=== PATIENT | female | born 1965 | race African-American/Black ===

== ENCOUNTER 2017-05-30 15:00 | Inpatient (IN) | payer OTHER ==
[2017-05-30 16:52] VITALS: BMI 21.9
--- NOTE | 2017-05-30 17:41 | HP ---
CIWA Score - CIWA Score Nausea/Vomitin-Mild Nausea/No Vomiting Muscle Tremors: 4-Moderate,w/Arms Extend Anxiety: 4-Mod. Anxious/Guarded Agitation: 4-Moderately Restless Paroxysmal Sweats: 1-Minimal Palms Moist Orientation: 1-Uncertain about Date Tacttile Disturbances: 0-None Auditory Disturbances: 0-None Visual Disturbances: 0-None Headache: 1-Very Mild CIWA-Ar Total Score: 16 Admission ROS S - HPI Chief Complaint: WITHDRAWAL SX Allergies/Adverse Reactions: Allergies Allergy/AdvReac Type Severity Reaction Status Date / Time diphenhydramine HCl Allergy Swelling Verified 05/30/17 17:08 [From Benadryl] peanut Allergy Swelling Verified 05/30/17 18:09 peanuts Allergy Swelling Uncoded 05/30/17 17:08 Exam Limitations: No Limitations - Ebola screening Have you traveled outside of the country in the last 21 days: No Have you had contact with anyone from an Ebola affected area: No Have you been sick,other than usual withdrawal symptoms: No Do you have a fever: No - Review of Systems Constitutional: Loss of Appetite, Changes in sleep, Unintentional Wgt. Loss, Unexplained wgt Loss EENT: reports: Dental Problems (MISSING TEETH UPPER AND LOWER) Respiratory: reports: SOB with Exertion Cardiac: reports: No Symptoms Reported GI: reports: Nausea, Poor Appetite, Poor Fluid Intake, Abdominal cramping : reports: No Symptoms Reported Musculoskeletal: reports: Back Pain, Joint Pain, Muscle Pain (LEFT FOOT LEFT LEG ), Neck Pain Integumentary: reports: No Symptoms Reported Neuro: reports: Tremors Endocrine: reports: Increased Urine Hematology: reports: No Symptoms Reported Psychiatric: reports: Judgement Intact, Anxious, Depressed Other Systems: Reviewed and Negative Patient History - Patient Medical History Hx Anemia: No Hx Asthma: Yes Hx Chronic Obstructive Pulmonary Disease (COPD): No Hx Cancer: No Hx Cardiac Disorders: No Hx Congestive Heart Failure: No Hx Hypertension: Yes Hx Hypercholesterolemia: Yes Hx Pacemaker: No Hx Seizures: Yes (UNKNOWN) Hx Dementia: No Hx Diabetes: Yes Hx Gastrointestinal Disorders: No Hx Liver Disease: Yes Hx Genitourinary Disorders: No Hx Sexually Transmitted Disorders: No Hx Renal Disease (ESRD): No Hx Thyroid Disease: No Hx Human Immunodeficiency Virus (HIV): Yes (dx'ed 1997) Hx Hepatitis C: No Hx Depression: Yes Hx Suicide Attempt: Yes (46 YEARS OLD CUT ARMS) Hx Bipolar Disorder: No Hx Schizophrenia: Yes (PARONID) - Patient Surgical History Past Surgical History: No Hx Neurologic Surgery: No Hx Cataract Extraction: No Hx Cardiac Surgery: No Hx Lung Surgery: No Hx Breast Surgery: No Hx Breast Biopsy: No Hx Abdominal Surgery: No Hx Appendectomy: No Hx Cholecystectomy: No Hx Genitourinary Surgery: No Hx Section: No Hx Orthopedic Surgery: No Hx Hysterectomy: No - PPD History Previous Implant?: Yes Documented Results: Negative w/proof Implanted On Prior [facility] Admission?: Yes Date: 10/01/14 Results: 0MM PPD to be Administered?: Yes - Reproductive History Patient is a Female of Child Bearing Age (11 -55 yrs old): Yes Last Menstrual Period: 09/27/16 Patient : No - Smoking Cessation Smoking history: Current every day smoker Have you smoked in the past 12 months: Yes Aproximately how many cigarettes per day: 20 Cigars Per Day: 0 Hx Chewing Tobacco Use: No Initiated information on smoking cessation: Yes 'Breaking Loose' booklet given: 05/30/17 - Substance & Tx. History Hx Alcohol Use: Yes Hx Substance Use: Yes Substance Use Type: Alcohol, Cocaine Hx Substance Use Treatment: Yes (2014) - Substances Abused Crack Route: Smoking Frequency: Daily Amount used: $100 Age of first use: 19 Date of Last Use: 05/29/17 ETOH Route: Oral Frequency: Daily Amount used: 1 PINT VODKA + 24OZX6 Age of first use: 19 Date of Last Use: 05/30/17 Family Disease History - Family Disease History Family Disease History: Diabetes: Sister (hiv - ), Heart Disease: Mother (htn - ), Other: Father (/HIV), Mother, Brother (NO CONTACT), Sister Admission Physical Exam B[facility] - Vital Signs Vital Signs: Vital Signs - 24 hr 05/30/17 16:49 Temperature 98.4 F Pulse Rate 92 H Respiratory 18 Rate Blood Pressure 130/101 - Physical General Appearance: Yes: Appropriately Dressed, Mild Distress, Thin, Tremorous, Irritable, Sweating, Anxious HEENTM: Yes: Hearing grossly Normal, Normal ENT Inspection, Normocephalic, Normal Voice Respiratory: Yes: Chest Non-Tender, No Respiratory Distress, No Accessory Muscle Use, Wheezing, Inspiration Neck: Yes: Supple, Trachea in good position Breast: Yes: Breasts Symetrical Cardiology: Yes: Regular Rhythm, S1, S2, Tachycardia Abdominal: Yes: Normal Bowel Sounds, Non Tender, Soft Genitourinary: Yes: Within Normal Limits Back: Yes: Normal Inspection Musculoskeletal: Yes: full range of Motion, Gait Steady, Back pain, Muscle Pain Extremities: Yes: Normal Inspection, Normal Range of Motion, Non-Tender, Tremors Neurological: Yes: Alert, Motor Strength 5/5, Normal Response, Depressed Affect Integumentary: Yes: Warm Lymphatic: Yes: Within Normal Limits - Diagnostic (1) Alcohol dependence with uncomplicated withdrawal Current Visit: Yes Status: Acute (2) Cocaine dependence, uncomplicated Current Visit: Yes Status: Chronic (3) Weight loss Current Visit: Yes Status: Acute (4) Bipolar II disorder Current Visit: Yes Status: Suspected (5) Blind left eye Current Visit: Yes Status: Suspected Comment: CVA 04/2017 (6) Asthma Current Visit: Yes Status: Chronic Qualifiers: Asthma severity: mild Asthma persistence: persistent Asthma complication type: with status asthmaticus Qualified Code(s): J45.32 - Mild persistent asthma with status asthmaticus (7) Hyperlipidemia Current Visit: Yes Status: Chronic Qualifiers: Hyperlipidemia type: pure hypercholesterolemia Qualified Code(s): E78.00 - Pure hypercholesterolemia, unspecified; E78.0 - Pure hypercholesterolemia (8) HIV (human immunodeficiency virus infection) Current Visit: Yes Status: Chronic Comment: NOT ON ANY MEDICATION FOR "MONTHS" (9) HTN (hypertension) Current Visit: Yes Status: Chronic Qualifiers: Hypertension type: essential hypertension Qualified Code(s): I10 - Essential (primary) hypertension (10) Nicotine dependence Current Visit: Yes Status: Acute Qualifiers: Nicotine product type: cigarettes Substance use status: in withdrawal Qualified Code(s): F17.213 - Nicotine dependence, cigarettes, with withdrawal (11) Seizure disorder Current Visit: Yes Status: Chronic Comment: no complaint with medication use SINCE 2000 Cleared for Admission S - Detox or Rehab [facility] Level of Care: Medically Managed Detox Regimen/Protocol: Librium [facility] Breath Alcohol Content Breath Alcohol Content: 0 Urine Pregancy Test - Result Urine Test Results: Negative- NO Line Present Urine Drug Screen - Results Drug Screen Negative: No Urine Drug Screen Results: GOLDIE-Cocaine
[2017-05-30] MEDS ORDERED: LOPERAMIDE HCL 2 MG CAPSULE PO PRN (18:02)
[2017-05-30] MEDS ORDERED: guaiFENesin/D-METHORPHAN HB 10 ML UNIT-DOSE CUPS PO PRN (18:02)
[2017-05-30] MEDS ORDERED: P-EPHED 60MG/TRIPROLIDI 2.5MG TABLET PO PRN (18:02)
[2017-05-30] MEDS ORDERED: chlordiazePOXIDE HCL 25 MG CAPSULE PO PRN (18:02)
[2017-05-30] MEDS ORDERED: MAGNESIUM CITRATE 300 ML BOTTLE PO PRN (18:02)
[2017-05-30] MEDS ORDERED: IBUPROFEN 400 MG TABLET (FP) PO PRN (18:02)
[2017-05-30] MEDS ORDERED: MENTHOL/PHENOL 1 EACH UD MM PRN (18:02)
[2017-05-30] MEDS ORDERED: NICOTINE POLACRILEX 4 MG GUM BC PRN (18:02)
[2017-05-30] MEDS ORDERED: MAG HYDROX/AL HYDROX/SIMETH 30 ML UNIT-DOSE CUP PO PRN (18:02)
[2017-05-30] MEDS ORDERED: MAGNESIUM HYDROX 2400MG/30ML ORAL SUSPENSION 30 ML CUP PO PRN (18:02)
[2017-05-30] MEDS ORDERED: ALBUTEROL SO4 18 GM HFA INHALER IH PRN (18:05)
[2017-05-30] MEDS ORDERED: NICOTINE 21 MG/24 HOURS TOPICAL PATCH TD PRN (18:45)
[2017-05-30] MEDS: ACETAMINOPHEN 325 MG TABLET (FP) PO PRN (20:43)
--- NOTE | 2017-05-30 21:46 | PN ---
[facility] Progress Note Note: tempt 100.1 tylenal 650 mg x 1 increase oral fluid continue monitor
[2017-05-30] MEDS: PHENYTOIN NA EXTENDED 100 MG CAPSULE (FP) PO SCH (22:40)
[2017-05-30] MEDS: chlordiazePOXIDE HCL 25 MG CAPSULE PO SCH (22:41)
[2017-05-30] MEDS: ATORVASTATIN CA 10 MG TABLET (FP) PO SCH (22:41)
[2017-05-30] MEDS: THIAMINE HCL 100 MG TABLET (FP) PO SCH (22:41)
[2017-05-30] MEDS: INSULIN SLIDING SCALE (NOVOLOG) 1 VIAL SQ SCH (22:45)
[2017-05-31 00:17] LABS: URINE APPEARANCE CLEAR; URINE BILIRUBIN NEGATIVE (NEGATIVE); URINE BLOOD 1+ (NEGATIVE); URINE COLOR STRAW; URINE GLUCOSE (UA) 1+ (NEGATIVE); URINE KETONE NEGATIVE (NEGATIVE); URINE NITRITE NEGATIVE (NEGATIVE); URINE UROBILINOGEN NEGATIVE mg/dL (0.2-1.0)
[2017-05-31 00:30] LABS: URINE LEUK ESTERASE 1+ (NEGATIVE); URINE PROTEIN 2+ (NEGATIVE)
[2017-05-31 01:06] LABS: EPI CELLS RARE /HPF (FEW); URINE MUCUS RARE
[2017-05-31] MEDS: chlordiazePOXIDE HCL 25 MG CAPSULE PO SCH ×4 (06:11→22:30)
[2017-05-31] MEDS ORDERED: metFORMIN HCL 500 MG TABLET (FP) PO SCH (07:00)
[2017-05-31] MEDS: INSULIN SLIDING SCALE (NOVOLOG) 1 VIAL SQ SCH ×4 (07:22→22:29)
--- NOTE | 2017-05-31 09:04 | CONSULT ---
[facility] Psychiatric Consult - Data Date of interview: 05/31/17 Admission source: [facility] Identifying data: This is 52 years old female with multiple medical iossues, history of Bipolar disorder, intoxicated with: Crack, Nicotine, hisatory of Alcohol abuse as well Substance Abuse History: Smoking history: Current every day smoker. Have you smoked in the past 12 months: Yes. Aproximately how many cigarettes per day: 20. Cigars Per Day: 0. Hx Chewing Tobacco Use: No. Initiated information on smoking cessation: Yes. 'Breaking Loose' booklet given: 05/30/17. - Substance & Tx. History. Hx Alcohol Use: Yes. Hx Substance Use: Yes. Substance Use Type : Alcohol, Cocaine. Hx Substance Use Treatment: Yes (2014). - Substances Abused. Crack. Route: Smoking. Frequency: Daily. Amount used: $100. Age of first use: 19. Date of Last Use: 05/29/17. ETOH. Route: Oral. Frequency: Daily. Amount used: 1 PINT VODKA + 24OZX6. Age of first use: 19. Date of Last Use: 05/30/17 Medical History: Weight loss history, HIV, HTN, Asthma, Left eye blindness, Hypelipidemia, Seizure history Psychiatric History: Patient reports history of depression and anxiety, Bipolar -II disorder, reports taking prior to admission: no medicastions, denies history of psychiatric admissions. As per computer there is a history of Paranoid Schizophrenia Physical/Sexual Abuse/Trauma History: Denies Additional Comment: Observation. Detox Unit Care Protocol Mental Status Exam - Mental Status Exam Alert and Oriented to: Person Cognitive Function: Fair Patient Appearance: Unkempt Mood: Sad Affect: Flat Patient Behavior: Sedated Speech Pattern: Delayed Voice Loudness: Mildly Soft/Quiet Thought Process: Circumstantial Thought Disorder: Being Controlled Hallucinations: Denies Suicidal Ideation: Denies Homicidal Ideation: Denies Insight/Judgement: Fair Sleep: Difficulty falling asleep Appetite: Fair Muscle strength/Tone: Mild Hypotonicity Gait/Station: Shuffling Additional Comments: Observation. Detox Unit Care Protocol Psychiatric Findings - Problem List ([place] 1, 2,3) (1) Alcohol dependence with uncomplicated withdrawal Current Visit: Yes Status: Acute (2) Nicotine dependence Current Visit: Yes Status: Acute Qualifiers: Nicotine product type: cigarettes Substance use status: in withdrawal Qualified Code(s): F17.213 - Nicotine dependence, cigarettes, with withdrawal (3) Weight loss Current Visit: Yes Status: Acute (4) Cocaine dependence, uncomplicated Current Visit: Yes Status: Chronic (5) Seizure disorder Current Visit: Yes Status: Chronic Comment: no complaint with medication use SINCE 2000 (6) Bipolar II disorder Current Visit: Yes Status: Suspected (7) Cocaine dependence Current Visit: No Status: Acute (8) Opioid dependence Current Visit: No Status: Acute Qualifiers: Substance use status: in withdrawal Qualified Code(s): F11.23 - Opioid dependence with withdrawal (9) Opioid dependence with withdrawal Current Visit: No Status: Acute (10) Paranoid schizophrenia Current Visit: No Status: Suspected - Initial Treatment Plan Initial Treatment Plan: Observation. Detox Unit Care Protocol
--- NOTE | 2017-05-31 09:13 | EKG ---
Test Reason : Blood Pressure : / mmHG Vent. Rate : 080 BPM Atrial Rate : 080 BPM P-R Int : 154 ms QRS Dur : 090 ms QT Int : 360 ms P-R-T Axes : 082 051 049 degrees QTc Int : 415 ms NORMAL SINUS RHYTHM POSSIBLE LEFT ATRIAL ENLARGEMENT LEFT VENTRICULAR HYPERTROPHY WITH REPOLARIZATION ABNORMALITY ABNORMAL ECG NO PREVIOUS ECGS AVAILABLE Confirmed by ABIEL SHIELDS MD ([id number]) on 05/31/2017 9:13:04 AM Referred By: Confirmed By:ABIEL SHIELDS MD
[2017-05-31 09:53] LABS: HEMATOCRIT 33.2 % (32.4-45.2); HEMOGLOBIN 10.5 GM/dL (10.7-15.3); MCH 26.6 pg (25.7-33.7); MCHC 31.7 g/dl (32.0-36.0); MEAN CELL VOLUME 83.8 fl (80-96); MEAN PLT VOLUME 9.6 fl (7.5-11.1); PLATELET COUNT 295 K/MM3 (134-434); RBC 3.96 M/mm3 (3.60-5.2); RDW 15.2 % (11.6-15.6); WHITE BLOOD COUNT 4.3 K/mm3 (4.0-10.0)
[2017-05-31] MEDS ORDERED: ERGOCALCIFEROL (VITAMIN D2) 50,000 UNIT CAPSULE (FP) PO SCH (10:00)
[2017-05-31 10:14] LABS: CHLORIDE 117 mmol/L (98-107); POTASSIUM 4.3 mmol/L (3.5-5.1); SODIUM 145 mmol/L (136-145)
--- NOTE | 2017-05-31 10:21 | PN ---
S CIWA - CIWA Score Nausea/Vomitin Muscle Tremors: 3 Anxiety: 3 Agitation: 3 Paroxysmal Sweats: 1-Minimal Palms Moist Orientation: 0-Oriented Tacttile Disturbances: 1-Very Mild Itch/Numbness Auditory Disturbances: 1-Very Mild Visual Disturbances: 0-None Headache: 2-Mild CIWA-Ar Total Score: 17 BHS Progress Note (SOAP) Subjective: ALERT,IRRITABLE,ANXIOUS,INTERRUPTED SLEEP,TREMOR,IRRITABLE,PAIN IN THE BODY Objective: 05/31/17 10:18 Vital Signs Temperature 98 F 05/31/17 10:00 Pulse Rate 92 H 05/31/17 10:00 Respiratory Rate 18 05/31/17 10:00 Blood Pressure 150/83 05/31/17 10:00 O2 Sat by Pulse Oximetry (%) EKG NSR,LVH NO CHEST PAIN,NO SOB,NO DIZZINESS Laboratory Last Values WBC 4.3 K/mm3 (4.0-10.0) 05/31/17 07:00 RBC 3.96 M/mm3 (3.60-5.2) 05/31/17 07:00 Hgb 10.5 GM/dL (10.7-15.3) L D 05/31/17 07:00 Hct 33.2 % (32.4-45.2) 05/31/17 07:00 MCV 83.8 fl (80-96) 05/31/17 07:00 MCH 26.6 pg (25.7-33.7) 05/31/17 07:00 MCHC 31.7 g/dl (32.0-36.0) L 05/31/17 07:00 RDW 15.2 % (11.6-15.6) 05/31/17 07:00 Plt Count 295 K/MM3 (134-434) D 05/31/17 07:00 MPV 9.6 fl (7.5-11.1) 05/31/17 07:00 Sodium 145 mmol/L (136-145) 05/31/17 07:00 Potassium 4.3 mmol/L (3.5-5.1) 05/31/17 07:00 Chloride 117 mmol/L (98-107) H 05/31/17 07:00 POC Glucometer 108 UNITS (80-120) 05/31/17 05:59 Urine Color Straw 05/30/17 20:42 Urine Appearance Clear 05/30/17 20:42 Urine pH 5.0 (5.0-8.0) D 05/30/17 20:42 Ur Specific [place] 1.009 (1.001-1.035) 05/30/17 20:42 Urine Protein 2+ (NEGATIVE) H 05/30/17 20:42 Urine Glucose (UA) 1+ (NEGATIVE) H 05/30/17 20:42 Urine Ketones Negative (NEGATIVE) 05/30/17 20:42 Urine Blood 1+ (NEGATIVE) H 05/30/17 20:42 Urine Nitrite Negative (NEGATIVE) 05/30/17 20:42 Urine Bilirubin Negative (NEGATIVE) 05/30/17 20:42 Urine Urobilinogen Negative mg/dL (0.2-1.0) 05/30/17 20:42 Ur Leukocyte Esterase 1+ (NEGATIVE) H 05/30/17 20:42 Urine WBC (Auto) 2 /hpf (3-5) 05/30/17 20:42 Urine RBC (Auto) 2 /hpf (0-3) 05/30/17 20:42 Ur Epithelial Cells Rare /HPF (FEW) 05/30/17 20:42 Urine Mucus Rare 05/30/17 20:42 05/31/17 10:19 LABS PENDING Assessment: 05/31/17 10:20 WITHDRAWAL SYMPTOM Plan: CONTINUE DETOX,BGM MONITORING
[2017-05-31] MEDS: amLODIPine BESYLATE 5 MG TABLET (FP) PO SCH (10:29)
[2017-05-31] MEDS: PRENATAL VITAMINS W/ FOLIC ACID TABLET (FP) PO SCH (10:29)
[2017-05-31] MEDS: PHENYTOIN NA EXTENDED 100 MG CAPSULE (FP) PO SCH ×2 (10:29→22:29)
[2017-05-31] MEDS: ASPIRIN 81 MG CHEWABLE TABLETS PO SCH (10:29)
[2017-05-31 10:58] LABS: ALBUMIN 2.1 g/dl (3.4-5.0); ALK PHOS 82 U/L (45-117); ANION GAP 9 (8-16); BILIRUBIN,TOTAL 0.3 mg/dL (0.2-1.0); BLOOD UREA NITROGEN 29 mg/dL (7-18); CALCIUM 8.3 mg/dL (8.5-10.1); CO2 19 mmol/L (21-32); CREATININE 2.1 mg/dL (0.55-1.02); GLUCOSE,RANDOM 104 mg/dL (74-106); SGOT/AST 21 U/L (15-37); SGPT/ALT 23 U/L (12-78); TOT PROT 5.9 g/dl (6.4-8.2)
[2017-05-31] MEDS ORDERED: INSULIN (NOVOLOG) ASPART 100 UNITS/ML 10ML VIAL ONE (11:48)
[2017-05-31] MEDS: THIAMINE HCL 100 MG TABLET (FP) PO SCH (22:30)
[2017-05-31] MEDS: ATORVASTATIN CA 10 MG TABLET (FP) PO SCH (22:30)
[2017-06-01] MEDS: INSULIN SLIDING SCALE (NOVOLOG) 1 VIAL SQ SCH ×4 (06:15→23:00)
[2017-06-01] MEDS: chlordiazePOXIDE HCL 25 MG CAPSULE PO SCH ×3 (06:15→17:46)
[2017-06-01] MEDS: ASPIRIN 81 MG CHEWABLE TABLETS PO SCH (10:43)
[2017-06-01] MEDS: PHENYTOIN NA EXTENDED 100 MG CAPSULE (FP) PO SCH ×2 (10:43→22:56)
[2017-06-01] MEDS: PRENATAL VITAMINS W/ FOLIC ACID TABLET (FP) PO SCH (10:43)
[2017-06-01] MEDS: amLODIPine BESYLATE 5 MG TABLET (FP) PO SCH (10:43)
[2017-06-01] MEDS ORDERED: PHENYTOIN NA EXTENDED 100 MG CAPSULE (FP) PO ONE (10:52)
--- NOTE | 2017-06-01 10:52 | PN ---
S CIWA - CIWA Score Nausea/Vomitin Muscle Tremors: 3 Anxiety: 2 Agitation: 2 Paroxysmal Sweats: 1-Minimal Palms Moist Orientation: 0-Oriented Tacttile Disturbances: 1-Very Mild Itch/Numbness Auditory Disturbances: 1-Very Mild Visual Disturbances: 0-None Headache: 2-Mild CIWA-Ar Total Score: 15 BHS Progress Note (SOAP) Subjective: ALERT,IRRITABLE,ANXIOUS,INTERRUPTED SLEEP,TREMOR HAD A FALL THIS MORNIG,NO INJURY NOTED,NO HEAD INJURY Objective: 06/01/17 10:49 Vital Signs Temperature 99.0 F 06/01/17 10:32 Pulse Rate 100 H 06/01/17 10:32 Respiratory Rate 18 06/01/17 10:32 Blood Pressure 144/75 06/01/17 10:32 O2 Sat by Pulse Oximetry (%) Laboratory Last Values WBC 4.3 K/mm3 (4.0-10.0) 05/31/17 07:00 RBC 3.96 M/mm3 (3.60-5.2) 05/31/17 07:00 Hgb 10.5 GM/dL (10.7-15.3) L D 05/31/17 07:00 Hct 33.2 % (32.4-45.2) 05/31/17 07:00 MCV 83.8 fl (80-96) 05/31/17 07:00 MCH 26.6 pg (25.7-33.7) 05/31/17 07:00 MCHC 31.7 g/dl (32.0-36.0) L 05/31/17 07:00 RDW 15.2 % (11.6-15.6) 05/31/17 07:00 Plt Count 295 K/MM3 (134-434) D 05/31/17 07:00 MPV 9.6 fl (7.5-11.1) 05/31/17 07:00 Sodium 145 mmol/L (136-145) 05/31/17 07:00 Potassium 4.3 mmol/L (3.5-5.1) 05/31/17 07:00 Chloride 117 mmol/L (98-107) H 05/31/17 07:00 Carbon Dioxide 19 mmol/L (21-32) L D 05/31/17 07:00 Anion Gap 9 (8-16) 05/31/17 07:00 BUN 29 mg/dL (7-18) H D 05/31/17 07:00 Creatinine 2.1 mg/dL (0.55-1.02) H 05/31/17 07:00 Creat Clearance w eGFR 24.93 (>60) 05/31/17 07:00 POC Glucometer 124 UNITS (80-120) 06/01/17 05:52 Random Glucose 104 mg/dL (74-106) 05/31/17 07:00 Calcium 8.3 mg/dL (8.5-10.1) L 05/31/17 07:00 Total Bilirubin 0.3 mg/dL (0.2-1.0) 05/31/17 07:00 AST 21 U/L (15-37) D 05/31/17 07:00 ALT 23 U/L (12-78) D 05/31/17 07:00 Alkaline Phosphatase 82 U/L (45-117) 05/31/17 07:00 Total Protein 5.9 g/dl (6.4-8.2) L 05/31/17 07:00 Albumin 2.1 g/dl (3.4-5.0) L 05/31/17 07:00 Urine Color Straw 05/30/17 20:42 Urine Appearance Clear 05/30/17 20:42 Urine pH 5.0 (5.0-8.0) D 05/30/17 20:42 Ur Specific [place] 1.009 (1.001-1.035) 05/30/17 20:42 Urine Protein 2+ (NEGATIVE) H 05/30/17 20:42 Urine Glucose (UA) 1+ (NEGATIVE) H 05/30/17 20:42 Urine Ketones Negative (NEGATIVE) 05/30/17 20:42 Urine Blood 1+ (NEGATIVE) H 05/30/17 20:42 Urine Nitrite Negative (NEGATIVE) 05/30/17 20:42 Urine Bilirubin Negative (NEGATIVE) 05/30/17 20:42 Urine Urobilinogen Negative mg/dL (0.2-1.0) 05/30/17 20:42 Ur Leukocyte Esterase 1+ (NEGATIVE) H 05/30/17 20:42 Urine WBC (Auto) 2 /hpf (3-5) 05/30/17 20:42 Urine RBC (Auto) 2 /hpf (0-3) 05/30/17 20:42 Ur Epithelial Cells Rare /HPF (FEW) 05/30/17 20:42 Urine Mucus Rare 05/30/17 20:42 Phenytoin 3.0 ug/ml (10.0-20.0) L D 05/31/17 07:00 RPR Titer Nonreactive (NONREACTIVE) 05/31/17 07:00 Hepatitis C Antibody 0.1 s/co ratio (0.0-0.9) 05/30/17 07:00 Assessment: 06/01/17 10:51 WITHDRAWAL SYMPTOM Plan: CONTINUE DETOX,DILANTIN LEVEL IS 3,WILL GIVE LOADING DOSE OF DILANTIN 300 MGS PO NOW THEN 200 MGS PO BID SEIZURE PRECAUTION,FALL PROTOCOL 2 INITIATED WITH FALL PRECAUTION
[2017-06-01] MEDS ORDERED: INSULIN (NOVOLOG) ASPART 100 UNITS/ML 10ML VIAL ONE (17:35)
--- NOTE | 2017-06-01 18:19 | PN ---
[facility] Progress Note Note: PT. ASSESSED IN HER ROOM. SHE FELL GETTING OUT OF BED AND LANDED ON L-SIDE. PT. HAS A HISTORY OF CVA; LEFT- SIDED HEMIPARESIS NOTED. SHE DENIED HITTING HER HEAD. SHE REPORTS PAIN TO THE LEFT SIDE OF HER BODY IS 8/10. NO BRUISES NOTED AND SKIN INTACT. FROM. PLAN: FALL PROTOCOL #2 ORDERED CANE FALL PRECAUTIONS IBU PRN FOR PAIN
[2017-06-01] MEDS: ATORVASTATIN CA 10 MG TABLET (FP) PO SCH (22:56)
[2017-06-01] MEDS: THIAMINE HCL 100 MG TABLET (FP) PO SCH (22:56)
[2017-06-01] MEDS: chlordiazePOXIDE 5 MG CAPSULE PO SCH (22:59)
[2017-06-01] MEDS: cloNIDine HCL 0.1 MG TABLET PO PRN (23:54)
[2017-06-01] MEDS: ACETAMINOPHEN 325 MG TABLET (FP) PO PRN (23:56)
[2017-06-02] MEDS: chlordiazePOXIDE 5 MG CAPSULE PO SCH ×3 (06:21→17:31)
[2017-06-02] MEDS: INSULIN SLIDING SCALE (NOVOLOG) 1 VIAL SQ SCH ×4 (06:22→23:37)
--- NOTE | 2017-06-02 07:25 | PN ---
S Progress Note Note: ASKED TO SEE PT FOR A REPORTED FALL. CLIENT REPORTS SHE LOST HER BALANCE WHILE TRYING TO GET OUT. SHE STATES SHE FELL ON HER LEFT SIDE. CLIENT IS BLIND IN THE LEFT SIDE. SHE REPORTS GETTING OUT OF BED ON THIS SIDE.DENIES HEAD TRAUMA BUT C/ O L SIDE SORENESS. A/O X 3 NAD OOB AMBULATING W/ CANE W/O DIFFICULTLY SKIN INTACT NO EVIDENCE OF PHYSICAL INJURY NOTED FROM X4 W/O LIMITATIONS. SOME WEAKNESS NOTED TO L SIDE DUE TO OLD CVA Last Vital Signs Temp Pulse Resp BP Pulse Ox 97.3 F L 77 18 121/78 06/02/17 05:25 06/02/17 05:25 06/02/17 05:25 06/02/17 05:25 S/P UNWITNESSED FALL P- FALL PROTOCOL #2 CANE FOR AMBULATION D/W CLIENT TO EXIT BED FROM RIGHT SIDE DUE TO VISUAL IMPAIRMENT BOTH BED RAILS ON LEFT SIDE OF BED TO REMAIN UP AT ALL TIME TO PROMOTE BOUNDARIES CLOSE MONITORING TYLENOL, MOTRIN FOR PAIN CLIENT REFUSING WHEELCHAIR
[2017-06-02] MEDS: PHENYTOIN NA EXTENDED 100 MG CAPSULE (FP) PO SCH ×2 (11:44→23:05)
[2017-06-02] MEDS: ASPIRIN 81 MG CHEWABLE TABLETS PO SCH (11:44)
[2017-06-02] MEDS: amLODIPine BESYLATE 5 MG TABLET (FP) PO SCH (11:44)
[2017-06-02] MEDS: PRENATAL VITAMINS W/ FOLIC ACID TABLET (FP) PO SCH (11:44)
--- NOTE | 2017-06-02 11:53 | PN ---
S Progress Note (SOAP) Subjective: ALERT,IRRITABLE,ANXIOUS,INTERRUPTED SLEEP,HISTORY OF FALL THIS MORNING 7.10 AM NO INJURY NOTED IRRITABLE Objective: 06/02/17 11:55 Vital Signs Temperature 98.4 F 06/02/17 10:26 Pulse Rate 88 06/02/17 10:26 Respiratory Rate 16 06/02/17 10:26 Blood Pressure 116/77 06/02/17 10:26 O2 Sat by Pulse Oximetry (%) Assessment: 06/02/17 11:55 WITHDRAWAL SYMPTOM Plan: CONTINUE DETOX
[2017-06-02] MEDS ORDERED: INSULIN (NOVOLOG) ASPART 100 UNITS/ML 10ML VIAL ONE ×2 (11:55→17:27)
[2017-06-02] MEDS: chlordiazePOXIDE HCL 10 MG CAPSULE PO SCH (23:05)
[2017-06-02] MEDS: cloNIDine HCL 0.1 MG TABLET PO PRN (23:05)
[2017-06-02] MEDS: THIAMINE HCL 100 MG TABLET (FP) PO SCH (23:05)
[2017-06-02] MEDS: ATORVASTATIN CA 10 MG TABLET (FP) PO SCH (23:05)
[2017-06-03 06:25] VITALS: BP 119/83; PULSE 89; TEMP 99
[2017-06-03] MEDS: chlordiazePOXIDE HCL 10 MG CAPSULE PO SCH (06:40)
[2017-06-03] MEDS: INSULIN SLIDING SCALE (NOVOLOG) 1 VIAL SQ SCH (06:40)
--- NOTE | 2017-06-03 09:49 | DS ---
[facility] Detox Discharge Summary Admission Date: 05/30/17 Discharge Date: 06/03/17 - History Present History: Alcohol Dependence - Physical Exam Results Vital Signs: Vital Signs Temperature 99.0 F 06/03/17 06:00 Pulse Rate 89 06/03/17 06:00 Respiratory Rate 18 06/03/17 06:00 Blood Pressure 119/83 06/03/17 06:00 O2 Sat by Pulse Oximetry (%) Pertinent Admission Physical Exam Findings: withdrawal sx Vital Signs Temperature 99.0 F 06/03/17 06:00 Pulse Rate 89 06/03/17 06:00 Respiratory Rate 18 06/03/17 06:00 Blood Pressure 119/83 06/03/17 06:00 O2 Sat by Pulse Oximetry (%) Laboratory Last Values WBC 4.3 K/mm3 (4.0-10.0) 05/31/17 07:00 RBC 3.96 M/mm3 (3.60-5.2) 05/31/17 07:00 Hgb 10.5 GM/dL (10.7-15.3) L D 05/31/17 07:00 Hct 33.2 % (32.4-45.2) 05/31/17 07:00 MCV 83.8 fl (80-96) 05/31/17 07:00 MCH 26.6 pg (25.7-33.7) 05/31/17 07:00 MCHC 31.7 g/dl (32.0-36.0) L 05/31/17 07:00 RDW 15.2 % (11.6-15.6) 05/31/17 07:00 Plt Count 295 K/MM3 (134-434) D 05/31/17 07:00 MPV 9.6 fl (7.5-11.1) 05/31/17 07:00 Sodium 145 mmol/L (136-145) 05/31/17 07:00 Potassium 4.3 mmol/L (3.5-5.1) 05/31/17 07:00 Chloride 117 mmol/L (98-107) H 05/31/17 07:00 Carbon Dioxide 19 mmol/L (21-32) L D 05/31/17 07:00 Anion Gap 9 (8-16) 05/31/17 07:00 BUN 29 mg/dL (7-18) H D 05/31/17 07:00 Creatinine 2.1 mg/dL (0.55-1.02) H 05/31/17 07:00 Creat Clearance w eGFR 24.93 (>60) 05/31/17 07:00 POC Glucometer 119 UNITS (80-120) 06/03/17 06:36 Random Glucose 104 mg/dL (74-106) 05/31/17 07:00 Calcium 8.3 mg/dL (8.5-10.1) L 05/31/17 07:00 Total Bilirubin 0.3 mg/dL (0.2-1.0) 05/31/17 07:00 AST 21 U/L (15-37) D 05/31/17 07:00 ALT 23 U/L (12-78) D 05/31/17 07:00 Alkaline Phosphatase 82 U/L (45-117) 05/31/17 07:00 Total Protein 5.9 g/dl (6.4-8.2) L 05/31/17 07:00 Albumin 2.1 g/dl (3.4-5.0) L 05/31/17 07:00 Urine Color Straw 05/30/17 20:42 Urine Appearance Clear 05/30/17 20:42 Urine pH 5.0 (5.0-8.0) D 05/30/17 20:42 Ur Specific [place] 1.009 (1.001-1.035) 05/30/17 20:42 Urine Protein 2+ (NEGATIVE) H 05/30/17 20:42 Urine Glucose (UA) 1+ (NEGATIVE) H 05/30/17 20:42 Urine Ketones Negative (NEGATIVE) 05/30/17 20:42 Urine Blood 1+ (NEGATIVE) H 05/30/17 20:42 Urine Nitrite Negative (NEGATIVE) 05/30/17 20:42 Urine Bilirubin Negative (NEGATIVE) 05/30/17 20:42 Urine Urobilinogen Negative mg/dL (0.2-1.0) 05/30/17 20:42 Ur Leukocyte Esterase 1+ (NEGATIVE) H 05/30/17 20:42 Urine WBC (Auto) 2 /hpf (3-5) 05/30/17 20:42 Urine RBC (Auto) 2 /hpf (0-3) 05/30/17 20:42 Ur Epithelial Cells Rare /HPF (FEW) 05/30/17 20:42 Urine Mucus Rare 05/30/17 20:42 Phenytoin 3.0 ug/ml (10.0-20.0) L D 05/31/17 07:00 RPR Titer Nonreactive (NONREACTIVE) 05/31/17 07:00 Hepatitis C Antibody 0.1 s/co ratio (0.0-0.9) 05/30/17 07:00 lab noted - Treatment Hospital Course: Detox Protocol Followed, Detoxed Safely, Responded well, Discharged Condition Good, Rehab Referral Accepted - Medication Discharge Medications: Ambulatory Orders Albuterol Sulfate Inhaler - [Ventolin HFA Inhaler -] 2 inh PO Q4H 09/29/14 Amlodipine Besylate [Norvasc -] 2.5 mg PO DAILY 09/29/14 Atazanavir [Reyataz -] 300 mg PO DAILY 09/29/14 Atorvastatin Ca [Lipitor] 10 mg PO HS 09/29/14 Emtricitabine/Tenofovir [Truvada -] 1 tab PO DAILY 09/29/14 Metformin HCl [Glucophage -] 500 mg PO BID 09/29/14 Phenytoin Na Extended [Dilantin -] 200 mg PO BID 09/29/14 Ritonavir [Norvir] 100 mg PO DAILY 09/29/14 Citalopram Hydrobromide [Celexa -] 10 mg PO DAILY #30 tablet 05/10/15 Olanzapine [Zyprexa] 20 mg PO HS #30 tablet 05/10/15 - Diagnosis (1) Alcohol dependence with uncomplicated withdrawal Current Visit: Yes Status: Acute (2) Cocaine dependence, uncomplicated Current Visit: Yes Status: Chronic (3) Weight loss Current Visit: Yes Status: Acute (4) Bipolar II disorder Current Visit: Yes Status: Suspected (5) Blind left eye Current Visit: Yes Status: Suspected (6) Asthma Current Visit: Yes Status: Chronic Qualifiers: Asthma severity: mild Asthma persistence: persistent Asthma complication type: with status asthmaticus Qualified Code(s): J45.32 - Mild persistent asthma with status asthmaticus (7) Hyperlipidemia Current Visit: Yes Status: Chronic Qualifiers: Hyperlipidemia type: pure hypercholesterolemia Qualified Code(s): E78.00 - Pure hypercholesterolemia, unspecified; E78.0 - Pure hypercholesterolemia (8) HIV (human immunodeficiency virus infection) Current Visit: Yes Status: Chronic (9) HTN (hypertension) Current Visit: Yes Status: Chronic Qualifiers: Hypertension type: essential hypertension Qualified Code(s): I10 - Essential (primary) hypertension (10) Nicotine dependence Current Visit: Yes Status: Acute Qualifiers: Nicotine product type: cigarettes Substance use status: in withdrawal Qualified Code(s): F17.213 - Nicotine dependence, cigarettes, with withdrawal (11) Seizure disorder Current Visit: Yes Status: Chronic - AMA Did Patient Leave Against Medical Advice: No
[2017-06-03] MEDS: amLODIPine BESYLATE 5 MG TABLET (FP) PO SCH (09:59)
[2017-06-03] MEDS: ASPIRIN 81 MG CHEWABLE TABLETS PO SCH (09:59)
[2017-06-03] MEDS: PRENATAL VITAMINS W/ FOLIC ACID TABLET (FP) PO SCH (09:59)
[2017-06-03] MEDS: PHENYTOIN NA EXTENDED 100 MG CAPSULE (FP) PO SCH (09:59)
== END 2017-06-03 10:00 | disposition home or self-care (01) | DRG 774 ==
LOC: YASAS 15:00 → Y6N 17:21
PROVIDERS: ADMIT Internal Medicine; ATTEND Internal Medicine
PROC: HZ2ZZZZ Detoxification Services for Substance Abuse Treatment (ICD-10-PCS; principal; 2017-05-30)
DX: F10.230 Alcohol dependence with withdrawal, uncomplicated (principal); F14.20 Cocaine dependence, uncomplicated; F17.213 Nicotine dependence, cigarettes, with withdrawal; F31.81 Bipolar II disorder; F20.0 Paranoid schizophrenia; I10 Essential (primary) hypertension; E78.00 Pure hypercholesterolemia, unspecified; J45.32 Mild persistent asthma with status asthmaticus; G40.909 Epilepsy, unspecified, not intractable, without status epilepticus; H54.40 Blindness, one eye, unspecified eye; R63.4 Abnormal weight loss; Z68.21 Body mass index [BMI] 21.0-21.9, adult; Z91.5 Personal history of self-harm
CPT/HCPCS: 36415; 80053; 80185; 81003; 81015; 82962; 85027; 86593; 86803; 93005; 93010

== ENCOUNTER 2017-09-14 12:55 | Inpatient (IN) | payer OTHER ==
--- NOTE | 2017-09-14 13:35 | PDOC ---
History of Present Illness - General Stated Complaint: CHEST PAIN Time Seen by Provider: 09/14/17 13:01 History Source: Patient - History of Present Illness Initial Comments: 09/14/17 13:35 Patient is a 52 year old female with a PMH of HTN, HIV (last CD4 unknown, non- adherent > 1 year to multi drug regimen) presents to the ED c/o acute onset of chest pain. Patient states the pain is substernal, "gnawing and pounding" 10/10 , and positional (relieved by laying down). Patient states the pain continued throughout the morning and continued while she was at [facility] prompting staff to send her to our ED. Patient denies any previous h/o similar pain and notes the pain started after she ate a pastry and drank a glass of cold water. Endorses shortness of breath and intermittent palpitations denies any diaphoresis, nausea, lightheadedness. No recent travel, OCP use, immobilization. Of note, patient states she has been falling for the last 2 weeks and notes she most recently fell two days previous hitting the L side of her head. Uncertain LOC, cocaine use during time of fall. Notes dyspnea prior to falls but denies any chest pain, visual changes. Past History - Past Medical History Allergies/Adverse Reactions: Allergies Allergy/AdvReac Type Severity Reaction Status Date / Time diphenhydramine HCl Allergy Swelling Verified 09/14/17 14:01 [From Benadryl] peanut Allergy Swelling Verified 09/14/17 14:01 peanuts Allergy Swelling Uncoded 09/14/17 14:01 Home Medications: Ambulatory Orders Albuterol Sulfate Inhaler - [Ventolin HFA Inhaler -] 2 inh PO Q4H PRN #1 inhaler 09/06/17 Amlodipine Besylate [Norvasc -] 5 mg PO BID #60 tablet 09/06/17 Atorvastatin Ca [Lipitor] 10 mg PO HS tablet 09/06/17 Phenytoin Na Extended [Dilantin -] 200 mg PO BID #60 capsule 09/06/17 metFORMIN HCL [Glucophage -] 500 mg PO BID #60 tablet 09/06/17 Aspirin [ASA -] 81 mg PO DAILY #30 tab.chew 09/07/17 Anemia: No Asthma: Yes Cancer: No Cardiac Disorders: No CVA: Yes (left vision loss reports about 2-3 months ago ) COPD: No CHF: No Dementia: No Diabetes: Yes GI Disorders: No Disorders: No HTN: Yes Hypercholesterolemia: Yes Kidney Stones: No Liver Disease: Yes Seizures: Yes (2 yrs ago) Thyroid Disease: No - Surgical History Abdominal Surgery: No Appendectomy: No Cardiac Surgery: No Cholecystectomy: No Lung Surgery: No Neurologic Surgery: No Orthopedic Surgery: No - Reproductive History PID: No - Suicide/Smoking/Psychosocial Hx Smoking History: Current every day smoker Have you smoked in the past 12 months: Yes Number of Cigarettes Smoked Daily: 30 Cigars Per Day: 0 'Breaking Loose' booklet given: 09/03/17 Hx Alcohol Use: Yes Drug/Substance Use Hx: Yes Substance Use Type: Alcohol, Cocaine Hx Substance Use Treatment: Yes Review of Systems - Review of Systems Constitutional: No: Chills, Fever HEENTM: Yes: Other (L blindness ) Respiratory: Yes: Shortness of Breath. No: Cough Cardiac (ROS): Yes: Chest Pain, Palpitations. No: Lightheadedness, Syncope ABD/GI: No: Constipated, Diarrhea, Nausea, Vomiting : No: Burning, Dysuria *Physical Exam - Physical Exam General Appearance: Yes: Nourished, Appropriately Dressed HEENT: positive: EOMI, FREDERICK, Other (L lateral facial abrasion - healing, no erythema/edema/warmth). negative: Pharyngeal Erythema, Tonsillar Exudate, Tonsillar Erythema Neck: positive: Trachea midline, Supple Respiratory/Chest: positive: Lungs Clear Cardiovascular: positive: S1, S2 Gastrointestinal/Abdominal: positive: Normal Bowel Sounds, Soft. 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 Frontal diagnosis: r/o ACS, cocaine induced vasospasm, pericarditis GERD, PNA. 09/14/17 16:12 ECG shows NSR, HR 64, normal intervals, no deviations, some J point elevations in Lead II, III as well as aVG, V3-V6. C/w ECG on 09/04/15. 09/14/17 17:08 Troponin (+) @ 1.2. As no ECG changes - Troponin likely 2/2 to demand ischemia and SiSx 2/2 to cocaine induced vasospasm. Will give ASA, place patient on senior controller. 09/14/17 17:20 Case d/w Dr. Garcia (Cardiology) -- BP control with CCB as necessary. Repeat VS pending. Patient admitted to inpatient medicine service for further evaluation. Will continue to monitor while in ED. Patient counseled on POC. 09/14/17 20:10 Inpatient medicine service @ bedside. Patient admitted to telemetry unit for further evaluation. *DC/Admit/Observation/Transfer Diagnosis at time of Disposition: Chest pain Qualifiers: Chest pain type: unspecified Qualified Code(s): R07.9 - Chest pain, unspecified - Referrals - Patient Instructions - Post Discharge Activity
[2017-09-14] MEDS ORDERED: SODIUM CHLORIDE 0.9% 500 ML INFUS.BAG IV ONE (13:56)
[2017-09-14] MEDS ORDERED: FAMOTIDINE IV 20 MG/12 ML VIAL IVPUSH ONE (13:57)
[2017-09-14 14:03] VITALS: BMI 25.2
--- NOTE | 2017-09-14 14:11 | PDOC ---
Attending Attestation - HPI HPI: 09/14/17 14:22 The patient is a 52 year old female with history of hypertension, HIV, polysubstance abuse (crack cocaine, IVDA), who presents to the ED complaining of chest pain that began today. She states she recently completed drug detox but was unable to begin rehab yesterday. She states she felt disappointed and used $180 of crack yesterday around 5 PM. Today, she developed chest pain that is "pounding and gnawing", pleuritic, midsternal, and improved with lying flat. Denies fever, chills, or recent illness. Denies nausea, vomiting, or diaphoresis. Denies recent travel or peripheral edema. Patient does report several falls within the past several weeks. States she last fell two days ago and hit her head. No headache, blurred vision, nausea, vomiting, or diaphoresis. - Physicial Exam PE: 09/14/17 14:30 Vitals: Triage vital signs reviewed General Appearance: No acute distress, well nourished, well developed Head: Atraumatic Eyes: Pupils equal reactive round, extraocular movement intact Neck: Supple; No nuchal rigidity Chest Wall: Nontender Cardiac: Regular rate and rhythm, no murmurs, no rubs, no gallops Lungs: Clear to auscultation bilateral, good air movement bilaterally Abdomen: Soft, nondistended, normal bowel sounds, nontender to palpation Extremities: Full range of motion to all extremities, no cyanosis, clubbing, or edema Skin: Warm and dry, no rashes or lesions, no rash, no petechiae Psych: Normal mood, normal affect - Medical Decision Making 09/14/17 14:33 Documentation prepared by Janie Tao, acting as medical review coordinator for Manny Landry MD. <Janie Tao - Last Filed: 09/14/17 14:28> - Resident Resident Name: Caroline Ames - ED Attending Attestation I have performed the following: I have examined & evaluated the patient, The case was reviewed & discussed with the resident, I agree w/resident's findings & plan, Exceptions are as noted - Medical Decision Making 52 years old past medical history significant for polysubstance abuse recent crack cocaine use HIV noncompliant with heart medications presents to the ED with pleuritic type chest pain in the context of using $180 worth of crack cocaine yesterday. Will check labs EKG troponin and chest x-ray GI cocktail given pain started after eating observe and reassess. Reevaluation diffuse J-point ST elevations on EKG compared with prior no acute changes Reevaluation: Patient pain-free Reevaluation: Slightly elevated troponin 1.2. Given no acute EKG changes this most likely represents demand ischemia in the context of crack use. We'll give full dose aspirin cardiology has been consult and will admit to medicine for serial troponins and further management. <Manny Landry - Last Filed: 09/14/17 18:31> Heart Score/ECG Review - ECG Impressions Comment:: 09/14/17 18:29 EKG performed at 1311 demonstrates sinus rhythm 64 bpm QRS 92 P-R 154 QTc 455. There are diffuse J-point elevations in leads 23 aVF and V3 V4 V5 and V6. Is obtained and compared with a previous EKG on September 03. Which demonstrates the same morphology and no acute changes. Interpreted by me <Manny Landry - Last Filed: 09/14/17 18:31>
[2017-09-14 14:30] LABS: BASO % 0.7 % (0-2.0); EOS % 3.1 % (0-4.5); HEMATOCRIT 37.2 % (32.4-45.2); HEMOGLOBIN 12.5 GM/dL (10.7-15.3); LYMPH % 48.6 % (8-40); MCH 27.6 pg (25.7-33.7); MCHC 33.5 g/dl (32.0-36.0); MEAN CELL VOLUME 82.2 fl (80-96); MEAN PLT VOLUME 9.6 fl (7.5-11.1); MONO % 10.5 % (3.8-10.2); NEUT % 37.1 % (42.8-82.8); PLATELET COUNT 318 K/MM3 (134-434); RBC 4.53 M/mm3 (3.60-5.2); RDW 14.4 % (11.6-15.6); WHITE BLOOD COUNT 7.4 K/mm3 (4.0-10.0)
[2017-09-14] MEDS ORDERED: FAMOTIDINE 20 MG/50 ML IVPB 20 MG/50 ML MG IVPB ONE (14:53)
[2017-09-14 14:56] LABS: INR 0.93 (0.82-1.09); PROTHROMBIN TIME (PATIENT) 10.5 SEC (9.7-13.0)
[2017-09-14 16:51] LABS: ALBUMIN 2.6 g/dl (3.4-5.0); ANION GAP 5 (8-16); BILIRUBIN,TOTAL 0.1 mg/dL (0.2-1.0); BLOOD UREA NITROGEN 17 mg/dL (7-18); CALCIUM 8.1 mg/dL (8.5-10.1); CHLORIDE 114 mmol/L (98-107); CO2 22 mmol/L (21-32); GLUCOSE,RANDOM 88 mg/dL (74-106); POTASSIUM 4.5 mmol/L (3.5-5.1); SGOT/AST 55 U/L (15-37); SGPT/ALT 52 U/L (12-78); SODIUM 141 mmol/L (136-145); TOT PROT 7.5 g/dl (6.4-8.2)
[2017-09-14 17:04] LABS: ALK PHOS 103 U/L (45-117)
[2017-09-14] MEDS ORDERED: ASPIRIN 325 MG TABLET PO ONE (17:07)
--- NOTE | 2017-09-14 18:01 | HP ---
CHIEF COMPLAINT: chest pain PCP: unknown HISTORY OF PRESENT ILLNESS: 52 yr old woman with polysubstance abuse, HIV(not on treatment) presented to [facility] for detox and was transferred to [facility] ED for evaluation of her chest pain. It started this morning after she had her breakfast and smoked a cigarette , located in mid-substernal and radiates to her left arm, intermittent, 8/10 punching and pulling type of pain. Hence came in to the ED for further evaluation of her chest pain. Patient used cocaine yesterday at around 5pm, around 180 $ worth cocaine ( cracked), but yesterday didn't have any symptoms. Also complains of frequent falls that started around 2 weeks ago, states that while walking she falls frequently daily without any aura prior to the fall. Last fall was 2 days ago, falling onto her left side and face. Says she was looking up and then was on the ground. Has a h/o seizure for which she is not on any medication. Last seizure was 1 yr ago, was admitted for multiple seizures at [facility] 2 yrs ago. Denies sob, cough, palpitation, abdominal pain, fever, chills, rigors or sweating. Bowel/Bladder habit normal. Sleep/Appetite normal prior to the illness. Patient was admitted at [facility] for alcohol/cocaine detox from 09/03/2017-. Then went to Rehab today where her BP was 166/101 mmHg; P-74 bpm; sugar was 260. Has not been taking her HIV meds for >1yr, or any other medications. has not followed with her HIV physician or PCP because "he disappeared." 3 months ago she lost vision in her left eye, was seen by "3 different ophthalmologists" and told she "had a stroke in her eye," was evaluated at [facility]. ER course was notable for: (1) EKG in the ED compared to previous from 09/03/2017 does not show acute changes (2) elevated trop CHART REVIEWED FOR FURTHER PMHX INFORMATION. PAST MEDICAL HISTORY: hx of seizure d/o(unknown type), last episode 1 yr ago(was on dilantin on previous [facility] admission), hx of CVA diabetes, HTN, HLD, possible schizophrenia noted in previous [facility] notes questionable hx of PCP pneumonia yrs ago, patient thinks she may have had PCP may years ago PAST SURGICAL HISTORY: denies Social History: lives in an SRO in the [place], has multiple family members in [place] Smoking: current everyday smoker Alcohol: intermittent binge drinker of ETOH 6pk of beer and vodka 2x week Drugs: cocaine/crack, hx of heroin, denies IVDU Family History: unknown Allergies diphenhydramine HCl [From Benadryl] Allergy (Verified 09/14/17 14:01) Swelling peanut Allergy (Verified 09/14/17 14:01) Swelling peanuts Allergy (Uncoded 09/14/17 14:01) Swelling HOME MEDICATIONS: Home Medications - PRESCRIBED FROM PRE[facility]OUS [facility] [place], PATIENT DENIES TAKING THIS MEDICATIONS ON A DAILY BASIS Medication Instructions Recorded Albuterol Sulfate Inhaler - 2 inh PO Q4H PRN #1 inhaler 09/06/17 [Ventolin HFA Inhaler -] Amlodipine Besylate [Norvasc -] 5 mg PO BID #60 tablet 09/06/17 Atorvastatin Ca [Lipitor] 10 mg PO HS tablet 09/06/17 Phenytoin Na Extended [Dilantin -] 200 mg PO BID #60 capsule 09/06/17 metFORMIN HCL [Glucophage -] 500 mg PO BID #60 tablet 09/06/17 Aspirin [ASA -] 81 mg PO DAILY #30 tab.chew 09/07/17 REVIEW OF SYSTEMS CONSTITUTIONAL: Absent: fever, chills, diaphoresis, generalized weakness, malaise, loss of appetite, weight change HEENT: Present:visual changes Absent: rhinorrhea, nasal congestion, throat pain, throat swelling, difficulty swallowing, mouth swelling, eye pain CARDIOVASCULAR: Present: chest pain, Absent: syncope, palpitations, irregular heart rate, lightheadedness, peripheral edema RESPIRATORY: Absent: cough, shortness of breath, dyspnea with exertion, orthopnea, wheezing, stridor, hemoptysis GASTROINTESTINAL: Present: suprapubic pain from "needing to use the bathroom" Absent: abdominal pain, abdominal distension, nausea, vomiting, diarrhea, constipation, melena, hematochezia GENITOURINARY: Absent: dysuria, frequency, urgency, hesitancy, hematuria, flank pain, MUSCULOSKELETAL: Absent: myalgia, arthralgia, joint swelling, back pain, neck pain SKIN: Absent: rash, itching, pallor HEMATOLOGIC/IMMUNOLOGIC: Absent: easy bleeding, easy bruising, lymphadenopathy, frequent infections ENDOCRINE: Absent: unexplained weight gain, unexplained weight loss, heat intolerance, cold intolerance NEUROLOGIC: Present:unsteady gait, Absent: headache, focal weakness or paresthesias, dizziness, seizure, mental status changes, bladder or bowel incontinence PSYCHIATRIC: Absent: anxiety, depression, suicidal or homicidal ideation, hallucinations. PHYSICAL EXAMINATION Vital Signs - 24 hr 09/14/17 14:01 Temperature 98.4 F Pulse Rate 60 Respiratory 17 Rate Blood Pressure 151/113 O2 Sat by Pulse 100 Oximetry (%) GENERAL: Awake, alert, and fully oriented, in no acute distress. HEAD: Normal with no signs of trauma. EYES: Pupils equal, round and reactive to light, extraocular movements intact, sclera anicteric, conjunctiva clear. No lid lag. EARS, NOSE, THROAT: Ears normal, nares patent, oropharynx clear without exudates. Moist mucous membranes. eduntulism, no oral lesions or thrush. NECK: Normal range of motion, supple without JVD, or masses. CHEST: nontender, no edema, brusing, laceration or erythema to indicate trauma LUNGS: Breath sounds equal, clear to auscultation bilaterally. No wheezes, and no crackles. No accessory muscle use. HEART: Regular rate and rhythm, normal S1 and S2 without murmur, rub or gallop. ABDOMEN: Soft, nontender, not distended, normoactive bowel sounds, no guarding, no rebound, no masses. MUSCULOSKELETAL: Normal range of motion at all joints. No bony deformities or tenderness. No CVA tenderness. UPPER EXTREMITIES: warm, well-perfused. No cyanosis. No clubbing. No peripheral edema. LOWER EXTREMITIES: warm, well-perfused. No calf tenderness. No peripheral edema. NEUROLOGICAL: Normal speech. facial symmetry, bedside visual snellen chart, better vision in left than right, able to read upto 4 lines PSYCHIATRIC: Cooperative. Good eye contact. Appropriate mood and affect. SKIN: Warm, dry, normal turgor, no rashes or lesions noted, normal capillary refill. Laboratory Results - last 24 hr 09/14/17 09/14/17 09/14/17 13:11 14:11 14:24 WBC 7.4 D RBC 4.53 Hgb 12.5 Hct 37.2 MCV 82.2 MCH 27.6 MCHC 33.5 RDW 14.4 Plt Count 318 MPV 9.6 Neutrophils % 37.1 L Lymphocytes % 48.6 H Monocytes % 10.5 H Eosinophils % 3.1 Basophils % 0.7 PT with INR 10.50 INR 0.93 Sodium Cancelled Potassium Cancelled Chloride Cancelled Carbon Dioxide Cancelled Anion Gap Cancelled BUN Cancelled Creatinine Cancelled Creat Clearance w eGFR Cancelled Random Glucose Cancelled Calcium Cancelled Total Bilirubin Cancelled AST Cancelled ALT Cancelled Alkaline Phosphatase Cancelled Creatine Kinase Cancelled Troponin I Cancelled B-Natriuretic Peptide Cancelled Total Protein Cancelled Albumin Cancelled 09/14/17 16:08 WBC RBC Hgb Hct MCV MCH MCHC RDW Plt Count MPV Neutrophils % Lymphocytes % Monocytes % Eosinophils % Basophils % PT with INR INR Sodium 141 Potassium 4.5 Chloride 114 H Carbon Dioxide 22 Anion Gap 5 L BUN 17 Creatinine 2.0 H Creat Clearance w eGFR 26.37 Random Glucose 88 Calcium 8.1 L Total Bilirubin 0.1 L D AST 55 H ALT 52 Alkaline Phosphatase 103 Creatine Kinase 602 H Troponin I 1.20 H* B-Natriuretic Peptide Total Protein 7.5 Albumin 2.6 L ASSESSMENT/PLAN: 52 yr old woman with polysubstance abuse, HIV(not on treatment) presented to [facility] for detox and was transferred to [facility] ED for evaluation of her chest pain. # Chest pain with elevated trops, possibly due to deman ischemia however heart score 5, r/o ACS Continue tele monitoring Trend trops Lipid profile, A1c sent Echo ordered full dose ASA given in the ED consult: Dr. Garcia # Polysubstance abuse (Alcohol/cocaine/nicotine) currently CIWA score- 0, defer medical detox for eoth withdrawal at this time and monitor for DT's Folic acid, Thiamine, MVI Nicotine Patch Counseled on smoking cessation #Transaminitis r/o hepatitis # ZEYAD on CKD Creatinine 2 (baseline 1.8) Urine electrolytes sent to evaluate Avoid Nephrotoxic drugs # Diabetes Mellitus A1c pending Finger stick glucose monitoring, ACHS ISS Watch for hypoglycemic episodes # Hypertension-Not controlled Avoid Beta blockers due to cocaine use Continue Amlodipine 5mg # HIV - noncompliant Unknown CD4 count, not on HAART therapy since a year CD4 count pending Patient declined referral to [facility], says its too far, recommended patient find physician close to her area of choice no acute need to start HAART therapy # FEN Not on IV fluids, tolerating PO Electrolytes WNL Diabetic/low Na/low fat Diet # Prophylaxis For DVT: On Heparin 5000 IU sq TID For GI: Not indicated # Code Status: Full Code # Dispo: Duration of stay unknown. Admit in tele/Inpatient. Visit type - Emergency Visit Emergency Visit: Yes ED Registration Date: 09/14/17 Care time: The patient presented to the Emergency Department on the above date and was hospitalized for further evaluation of their emergent condition. - New Patient This patient is new to me today: Yes Date on this admission: 09/14/17 - Critical Care Critical Care patient: No Hospitalist Screening - Colonoscopy Questionnaire Colonoscopy Questionnaire: Colonoscopy Questionnaire - Patient: 50 - 75 years old and never had a screening colonoscopy: Unknown History of colon or rectal polyps, or CA: Unknown History of IBD, Crohn's disease or UC: Unknown History of abdominal radiation therapy as a child: Unknown - Relative: 1 with colon or rectal CA, or polyps at age 60 or younger: Unknown Colon or rectal CA diagnosed at age 45 or younger: Unknown Multiple relatives with colon or rectal CA: Unknown - Outcome: Screening Result: Negative Screen
[2017-09-14] MEDS ORDERED: ASPIRIN 325 MG TABLET ONE (18:47)
--- NOTE | 2017-09-14 21:18 | PN ---
Teaching Attending Note Name of Resident: Cinda Moe ATTENDING PHYSICIAN STATEMENT I saw and evaluated the patient. I reviewed the resident's note and discussed the case with the resident. I agree with the resident's findings and plan as documented. SUBJECTIVE: Patient to ED, complains of mild mid sternal chest discomfort. She states she had a fall and scraped the left gnosticism of her head several days ago. She was sent from [facility] after seeking drug detox and complaining of chest pain. 52 y/o female with hx of Polysubstance abuse crack and alcohol HIV + on no meds >1 year HTN and DM on no meds for >1 year OBJECTIVE: Last Vital Signs Temp Pulse Resp BP Pulse Ox 98.4 F 60 17 151/113 100 09/14/17 14:01 09/14/17 14:01 09/14/17 14:01 09/14/17 14:01 09/14/17 14:01 Awake, alert, oriented, non diaphoretic PERRL, complains of chronic poor vision L eye > R eye OP no thrush Neck supple no nodes chest clear throughout heart rr no M abd soft NT no masses extrem NT, no edema Neuro: MS nl, no focal deficits Laboratory Results - last 24 hr 09/14/17 09/14/17 09/14/17 13:11 14:11 14:24 WBC 7.4 D RBC 4.53 Hgb 12.5 Hct 37.2 MCV 82.2 MCH 27.6 MCHC 33.5 RDW 14.4 Plt Count 318 MPV 9.6 Neutrophils % 37.1 L Lymphocytes % 48.6 H Monocytes % 10.5 H Eosinophils % 3.1 Basophils % 0.7 PT with INR 10.50 INR 0.93 Sodium Cancelled Potassium Cancelled Chloride Cancelled Carbon Dioxide Cancelled Anion Gap Cancelled BUN Cancelled Creatinine Cancelled Creat Clearance w eGFR Cancelled Random Glucose Cancelled Calcium Cancelled Total Bilirubin Cancelled AST Cancelled ALT Cancelled Alkaline Phosphatase Cancelled Creatine Kinase Cancelled Creatine Kinase Index CK-MB (CK-2) Troponin I Cancelled B-Natriuretic Peptide Cancelled Total Protein Cancelled Albumin Cancelled Triglycerides Cholesterol Total LDL Cholesterol HDL Cholesterol 09/14/17 09/14/17 16:08 19:00 WBC RBC Hgb Hct MCV MCH MCHC RDW Plt Count MPV Neutrophils % Lymphocytes % Monocytes % Eosinophils % Basophils % PT with INR INR Sodium 141 Potassium 4.5 Chloride 114 H Carbon Dioxide 22 Anion Gap 5 L BUN 17 Creatinine 2.0 H Creat Clearance w eGFR 26.37 Random Glucose 88 Calcium 8.1 L Total Bilirubin 0.1 L D AST 55 H ALT 52 Alkaline Phosphatase 103 Creatine Kinase 602 H 591 H Creatine Kinase Index 2.2 2.6 CK-MB (CK-2) 13.726 H 15.436 H Troponin I 1.20 H* 2.52 H* B-Natriuretic Peptide Total Protein 7.5 Albumin 2.6 L Triglycerides 197 H Cholesterol 237 H Total LDL Cholesterol 174 H HDL Cholesterol 33 L Current Medications Generic Name Dose Route Start Last Admin Trade Name Raghuq PRN Reason Stop Dose Admin Folic Acid 1 mg 09/14/17 18:30 Folic Acid - PO DAILY [facility] Heparin Sodium (Porcine) 5,000 unit 09/14/17 22:00 Heparin - SQ TID [facility] Multivitamins/Minerals/Vitamin C 1 tab 09/14/17 18:30 Tab-A-Vit - PO DAILY [facility] Thiamine HCl 100 mg 09/14/17 18:30 Vitamin B1 - PO DAILY [facility] CT head WM dx, NAD CXR AP portable NAD ASSESSMENT AND PLAN: 52 y/o female with HIV not on treatment and active cocaine abuse, presents with chest pain and elevated troponin level in the setting of cocaine binge. Has knows CAD risk factors not on treatment. 1. Acute chest pain EKG with NS STT wave changes in the inferior and anterior leads, but these changes are all present on an EKG from earlier in the month more likely ischemia in the setting of cocaine abuse possible CAD vs demand ischemia or spasm from coke treat with aspirin follow serial enzymes and EKGs needs repeat blood pressure and treat with nitrates or ROBBIE depending on repeat 2. Hx PSA with cocaine and alcohol mvit, folate and thiamine monitor for signs of withdrawal 3. Transaminitis Hepatitis B and C panel to be checked 4. Elevated CK, mild, repeat to trend likely from recent fall (head CT was only notable for chronic white matter disease) 5. Hx HTN given acute ischemia, will write for NTBP tonight recheck pressure in am, start ROBBIE if needed 6. Hx DM monitor FSG Check HbA1c may need to restart glucophage 7. HIV positive not on treatment non-compliance due to polysubstance abuse, will need drug treatment to get her life under control as compliance with medical follow up is highly questionable and has repeatedly failed in the past in the setting of out of control cocaine habit CBC does not suggest advanced AIDS and there is no thrush on exam patient will need repeat testing for drug resistance as an outpatient prior to restarting ARVs 8. Prophylaxis SQ heparin
[2017-09-14] MEDS ORDERED: CLOPIDOGREL BISULFATE 300 MG TABLET PO ONE (21:44)
[2017-09-14] MEDS ORDERED: HEPARIN NA (PORCINE) 5,000 UNITS/ML 1ML VIAL SQ SCH (22:00)
[2017-09-14] MEDS: MULTIVITAMINS (DAILY MVI) TABLET (FP) PO SCH (22:18)
[2017-09-14] MEDS: ENOXAPARIN NA (PORCINE) 80 MG/0.8 ML DISP.SYRIN SQ SCH (22:18)
[2017-09-14] MEDS: THIAMINE HCL 100 MG TABLET (FP) PO SCH (22:18)
[2017-09-14] MEDS: FOLIC ACID 1 MG TABLET (FP) PO SCH (22:18)
[2017-09-14] MEDS: INSULIN SLIDING SCALE (NOVOLOG) 1 VIAL SQ SCH (22:19)
[2017-09-14] MEDS ORDERED: NITROGLYCERIN 2% OINTMENT - 1GM PACKET TD SCH (22:30)
[2017-09-15] MEDS ORDERED: amLODIPine BESYLATE 10 MG TABLET (FP) PO ONE (01:11)
[2017-09-15 01:44] LABS: URINE APPEARANCE SLCLOUDY; URINE BILIRUBIN NEGATIVE (<2.0 mg/dL); URINE COLOR LTYELLOW; URINE GLUCOSE (UA) 1+ (NEGATIVE); URINE KETONE NEGATIVE (NEGATIVE); URINE NITRITE NEGATIVE (NEGATIVE); URINE UROBILINOGEN NEGATIVE mg/dL (0.2-1.0)
[2017-09-15 01:46] LABS: URINE LEUK ESTERASE 3+ (NEGATIVE); URINE PROTEIN 2+ (NEGATIVE)
[2017-09-15 01:49] LABS: EPI CELLS FEW /HPF (FEW); URINE HYALINE CAST 1 /lpf
[2017-09-15 01:55] LABS: URINE CREATININE 26.2 mg/dL (20-320)
[2017-09-15 05:16] LABS: METHADONE, UR NEGATIVE ng/ml (CUTOFF=300); OPIATES, URI NEGATIVE ng/ml (CUTOFF=300); PHENCYCLIDINE,URINE NEGATIVE ng/ml (CUTOFF=25); URINE AMPHETAMINES NEGATIVE ng/ml (CUTOFF=500); URINE BARBITURATES NEGATIVE ng/ml (CUTOFF=200); URINE BENZODIAZEPINES NEGATIVE ng/ml (CUTOFF=200)
[2017-09-15 05:17] LABS: COCAINE, UR POSITIVE ng/ml (CUTOFF=300)
[2017-09-15] MEDS ORDERED: NITROGLYCERIN SUBLINGUAL 1/150 0.4 MG TAB SL ONE (05:53)
[2017-09-15] MEDS ORDERED: NITROGLYCERIN SUBLINGUAL 1/150 0.4 MG TAB SL PRN (05:56)
[2017-09-15] MEDS: INSULIN SLIDING SCALE (NOVOLOG) 1 VIAL SQ SCH ×4 (06:15→22:03)
--- NOTE | 2017-09-15 06:24 | HOSP ---
Physical Examination Vital Signs: Vital Signs Temperature 98 F 09/15/17 02:00 Pulse Rate 77 09/15/17 05:54 Respiratory Rate 18 09/15/17 05:54 Blood Pressure 146/108 09/15/17 05:54 O2 Sat by Pulse Oximetry (%) 97 09/14/17 23:27 Labs: CBC, BMP 09/14/17 16:08 Hospitalist Encounter Assessment: Patient was admitted on 09/14/2017 for evaluation of cocaine induced chest pain. Trended the troponins which were risin.2----> 2.5-----> 5.02----> pending at 6am Patient didn't have active chest pain during the rising troponin. EKG was done in series which showed NSR with PVC's After the second trop, case discussed with Dr. Garcia by Dr. Stuart over the phone, was recommended to treat the patient as NSTEMI- Lovenox, Plavix 09/15/17 4 AM: Pt doesn't complaint of chest pain at this time. Case discussed with Dr. Saleem. Visit type - Emergency Visit Emergency Visit: Yes ED Registration Date: 09/14/17 Care time: The patient presented to the Emergency Department on the above date and was hospitalized for further evaluation of their emergent condition. - New Patient This patient is new to me today: Yes Date on this admission: 09/14/17 - Critical Care Critical Care patient: No
[2017-09-15 08:47] LABS: BLOOD UREA NITROGEN 19 mg/dL (7-18); CALCIUM 8.9 mg/dL (8.5-10.1); CHLORIDE 112 mmol/L (98-107); POTASSIUM 4.1 mmol/L (3.5-5.1); SODIUM 143 mmol/L (136-145)
[2017-09-15 08:50] LABS: ANION GAP 7 (8-16); CO2 24 mmol/L (21-32); CREATININE 2.1 mg/dL (0.55-1.02); GLUCOSE,RANDOM 94 mg/dL (74-106)
[2017-09-15] MEDS: ENOXAPARIN NA (PORCINE) 80 MG/0.8 ML DISP.SYRIN SQ SCH (09:21)
[2017-09-15] MEDS: MULTIVITAMINS (DAILY MVI) TABLET (FP) PO SCH (09:21)
[2017-09-15] MEDS: FOLIC ACID 1 MG TABLET (FP) PO SCH (09:21)
[2017-09-15] MEDS: THIAMINE HCL 100 MG TABLET (FP) PO SCH (09:21)
[2017-09-15] MEDS ORDERED: CLOPIDOGREL BISULFATE 75 MG TABLET (FP) PO SCH (10:00)
[2017-09-15] MEDS ORDERED: ASPIRIN 325 MG TABLET PO SCH (10:00)
--- NOTE | 2017-09-15 10:14 | PN ---
Physical Exam: SUBJECTIVE: Patient seen and examined Patient is comfortable with no acute distress, asking for a nicotine patch OBJECTIVE: Vital Signs Temperature 98 F 09/15/17 09:23 Pulse Rate 70 09/15/17 09:23 Respiratory Rate 19 09/15/17 09:23 Blood Pressure 160/98 09/15/17 09:23 O2 Sat by Pulse Oximetry (%) 97 09/14/17 23:27 GENERAL: The patient is awake, alert, and fully oriented, in no acute distress. HEAD: Normal with no signs of trauma. EYES: PERRL, extraocular movements intact, sclera anicteric, conjunctiva clear. No ptosis. ENT: Ears normal, nares patent, oropharynx clear without exudates, moist mucous membranes. NECK: Trachea midline, full range of motion, supple. LUNGS: Breath sounds equal, clear to auscultation bilaterally, no wheezes, no crackles, no accessory muscle use. HEART: Regular rate and rhythm, S1, S2 without murmur, rub or gallop. ABDOMEN: Soft, nontender, nondistended, normoactive bowel sounds, no guarding, no rebound, no hepatosplenomegaly, no masses. EXTREMITIES: 2+ pulses, warm, well-perfused, no edema. NEUROLOGICAL: Cranial nerves II through XII grossly intact. Normal speech, gait not observed. PSYCH: Normal mood, normal affect. SKIN: Warm, dry, normal turgor, no rashes or lesions noted CBCD WBC 7.4 K/mm3 (4.0-10.0) D 09/14/17 13:11 RBC 4.53 M/mm3 (3.60-5.2) 09/14/17 13:11 Hgb 12.5 GM/dL (10.7-15.3) 09/14/17 13:11 Hct 37.2 % (32.4-45.2) 09/14/17 13:11 MCV 82.2 fl (80-96) 09/14/17 13:11 MCHC 33.5 g/dl (32.0-36.0) 09/14/17 13:11 RDW 14.4 % (11.6-15.6) 09/14/17 13:11 Plt Count 318 K/MM3 (134-434) 09/14/17 13:11 MPV 9.6 fl (7.5-11.1) 09/14/17 13:11 CMP Sodium 143 mmol/L (136-145) 09/15/17 06:50 Potassium 4.1 mmol/L (3.5-5.1) 09/15/17 06:50 Chloride 112 mmol/L (98-107) H 09/15/17 06:50 Carbon Dioxide 24 mmol/L (21-32) 09/15/17 06:50 Anion Gap 7 (8-16) L 09/15/17 06:50 BUN 19 mg/dL (7-18) H 09/15/17 06:50 Creatinine 2.1 mg/dL (0.55-1.02) H 09/15/17 06:50 Creat Clearance w eGFR 26.37 (>60) 09/14/17 16:08 Random Glucose 94 mg/dL (74-106) 09/15/17 06:50 Calcium 8.9 mg/dL (8.5-10.1) 09/15/17 06:50 Total Bilirubin 0.1 mg/dL (0.2-1.0) L D 09/14/17 16:08 AST 55 U/L (15-37) H 09/14/17 16:08 ALT 52 U/L (12-78) 09/14/17 16:08 Alkaline Phosphatase 103 U/L (45-117) 09/14/17 16:08 Total Protein 7.5 g/dl (6.4-8.2) 09/14/17 16:08 Albumin 2.6 g/dl (3.4-5.0) L 09/14/17 16:08 CARDIAC ENZYMES Creatine Kinase 591 IU/L (26-192) H 09/14/17 19:00 Troponin I 5.65 ng/ml (0.00-0.05) H* 09/15/17 06:50 Active Medications Generic Name Dose Route Start Last Admin Trade Name Raghuq PRN Reason Stop Dose Admin Aspirin 325 mg 09/15/17 10:00 09/15/17 09:21 Asa - PO 325 mg DAILY [facility] Administration Clopidogrel Bisulfate 75 mg 09/15/17 10:00 09/15/17 09:21 Plavix - PO 75 mg DAILY [facility] Administration Enoxaparin Sodium 70 mg 09/14/17 22:00 09/15/17 09:21 Lovenox - SQ 70 mg BID M[facility]I Administration Folic Acid 1 mg 09/14/17 18:30 09/15/17 09:21 Folic Acid - PO 1 mg DAILY [facility] Administration Insulin Aspart 1 vial 09/14/17 22:00 09/15/17 06:15 Novolog Vial Sliding Scale - SQ Not Given ACHS [facility] Protocol Multivitamins/Minerals/Vitamin C 1 tab 09/14/17 18:30 09/15/17 09:21 Tab-A-Vit - PO 1 tab DAILY [facility] Administration Nitroglycerin 0.4 mg 09/15/17 05:56 Nitrostat - SL Q8H PRN HYPERTENSION Thiamine HCl 100 mg 09/14/17 18:30 09/15/17 09:21 Vitamin B1 - PO 100 mg DAILY [facility] Administration Home Medications Medication Instructions Recorded Albuterol Sulfate Inhaler - 2 inh PO Q4H PRN #1 inhaler 09/06/17 [Ventolin HFA Inhaler -] Amlodipine Besylate [Norvasc -] 5 mg PO BID #60 tablet 09/06/17 Atorvastatin Ca [Lipitor] 10 mg PO HS tablet 09/06/17 Phenytoin Na Extended [Dilantin -] 200 mg PO BID #60 capsule 09/06/17 metFORMIN HCL [Glucophage -] 500 mg PO BID #60 tablet 09/06/17 Aspirin [ASA -] 81 mg PO DAILY #30 tab.chew 09/07/17 CT head WM dx, NAD CXR AP portable NAD ASSESSMENT AND PLAN: 52 y/o female with HIV not on treatment and active cocaine abuse, presents with chest pain and elevated troponin level in the setting of cocaine binge. Has knows CAD risk factors not on treatment. # Acute chest pain due to PSA: Cocaine ; ekg with no changes fro mprevious ekg compared to earlier of the month, On aspirin, EKG , serial enzymes, cardio on the case, Lovenox and Plavix continue #Hx PSA with cocaine and alcohol, on mvit, folate and thiamine # Acute Transaminitis ordered Hepatitis B and C panel , will follow # Mild Elevation of CK # Hx HTN continue BP meds # Hx DM monitor FSG, check HbA1c # HIV positive not on treatment due to non-compliance DVT Prophylaxis: heparin Patient developed Dysfunctional bleeding as per patient, she is [place] , will discontinue Plavix and Lovenox since bleeding discussed with but will continue Aspirin ;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 - New Patient This patient is new to me today: Yes Date on this admission: 09/16/17 - Critical Care Critical Care patient: Yes Total Critical Care Time (in minutes): 35 Critical Care Statement: The care of this patient involved high complexity decision making to prevent further life threatening deterioration of the patient 's condition and/or to evaluate & treat vital organ system(s) failure or risk of failure. - Discharge Referral Referred to [facility] Med P.C.: No
--- NOTE | 2017-09-15 11:31 | EKG ---
Test Reason : Blood Pressure : / mmHG Vent. Rate : 058 BPM Atrial Rate : 058 BPM P-R Int : 152 ms QRS Dur : 108 ms QT Int : 450 ms P-R-T Axes : 015 054 051 degrees QTc Int : 441 ms SINUS BRADYCARDIA WITH PREMATURE ATRIAL COMPLEXES OTHERWISE NORMAL ECG WHEN COMPARED WITH ECG OF 14-SEP-2017 13:11, PREMATURE ATRIAL COMPLEXES ARE NOW PRESENT Confirmed by SHAYY STARK, CARLOS ([id number]) on 09/15/2017 11:30:46 AM Referred By: Confirmed By:CARLOS LUCAS MD
--- NOTE | 2017-09-15 11:32 | EKG ---
Test Reason : Blood Pressure : / mmHG Vent. Rate : 064 BPM Atrial Rate : 064 BPM P-R Int : 154 ms QRS Dur : 092 ms QT Int : 442 ms P-R-T Axes : 025 060 053 degrees QTc Int : 455 ms NORMAL SINUS RHYTHM NORMAL ECG WHEN COMPARED WITH ECG OF 03-SEP-2017 22:02, PREMATURE ATRIAL COMPLEXES ARE NO LONGER PRESENT Confirmed by CARLOS LUCAS MD ([id number]) on 09/15/2017 11:32:00 AM Referred By: Confirmed By:CARLOS LUCAS MD
--- NOTE | 2017-09-15 11:51 | CON.CARD ---
Consult Consult Specialty:: Cardiology Referred by:: Dr blanc Reason for Consultation:: NSTEMI cp - History of Present Illness Chief Complaint: chest pain History of Present Illness: She is a 52 year old woman history of HTN, NIDDM, chol, HIV, substance abuse, smoker not on any medications for > 1 year who was admitted 09/14/17 with chest pain left sided radiating to the left arm, with sob. She has been using cocaine for the past days and was found with no ECG changes but elevated troponin. No recurrent symptoms. Given asa and heparin. - History Source History Provided By: Patient, Medical Record - Past Medical History ...LMP: 09/27/16 - Alcohol/Substance Use Hx Alcohol Use: Yes - Smoking History Smoking history: Current every day smoker Have you smoked in the past 12 months: Yes Aproximately how many cigarettes per day: 30 Home Medications - Allergies Allergies/Adverse Reactions: Allergies Allergy/AdvReac Type Severity Reaction Status Date / Time diphenhydramine HCl Allergy Swelling Verified 09/14/17 14:01 [From Benadryl] peanut Allergy Swelling Verified 09/14/17 14:01 peanuts Allergy Swelling Uncoded 09/14/17 14:01 - Home Medications Home Medications: Ambulatory Orders Albuterol Sulfate Inhaler - [Ventolin HFA Inhaler -] 2 inh PO Q4H PRN #1 inhaler 09/06/17 Amlodipine Besylate [Norvasc -] 5 mg PO BID #60 tablet 09/06/17 Atorvastatin Ca [Lipitor] 10 mg PO HS tablet 09/06/17 Phenytoin Na Extended [Dilantin -] 200 mg PO BID #60 capsule 09/06/17 metFORMIN HCL [Glucophage -] 500 mg PO BID #60 tablet 09/06/17 Aspirin [ASA -] 81 mg PO DAILY #30 tab.chew 09/07/17 Family Disease History - Family Disease History Family Disease History: Diabetes: Sister (hiv - ), Heart Disease: Mother (htn - ), Other: Father (/HIV), Mother, Brother (NO CONTACT), Sister Review of Systems - Review of Systems Constitutional: reports: No Symptoms Eyes: reports: No Symptoms HENT: reports: No Symptoms Neck: reports: No Symptoms Cardiovascular: reports: Chest Pain Respiratory: reports: Exercise Intolerance Gastrointestinal: reports: No Symptoms Genitourinary: reports: No Symptoms Vital Signs: Vital Signs Temperature 98 F 09/15/17 09:23 Pulse Rate 70 09/15/17 09:23 Respiratory Rate 19 09/15/17 09:23 Blood Pressure 160/98 09/15/17 09:23 O2 Sat by Pulse Oximetry (%) 97 09/14/17 23:27 Constitutional: Yes: No Distress Eyes: Yes: Conjunctiva Clear, EOM Intact HENT: Yes: Atraumatic, Normocephalic Neck: Yes: Supple, Trachea Midline Respiratory: Yes: CTA Bilaterally Gastrointestinal: Yes: Normal Bowel Sounds, Soft Cardiovascular: Yes: Regular Rate and Rhythm JVD: No Carotid Bruit: No PMI: Non-Displaced Heart Sounds: Yes: S1, S2 Musculoskeletal: Yes: WNL Extremities: Yes: WNL Edema: No Peripheral Pulses WNL: Yes - Other Data Labs, Other Data: CBC, BMP 09/15/17 06:50 INR, PTT INR 0.93 (0.82-1.09) 09/14/17 14:24 Troponin, BNP 09/14/17 09/14/17 09/14/17 14:11 16:08 19:00 Troponin I Cancelled 1.20 H* 2.52 H* B-Natriuretic Peptide Cancelled 09/15/17 09/15/17 01:00 06:50 Troponin I 5.02 H* 5.65 H* B-Natriuretic Peptide Troponin, BNP 09/14/17 09/14/17 09/14/17 14:11 16:08 19:00 Troponin I Cancelled 1.20 H* 2.52 H* B-Natriuretic Peptide Cancelled 09/15/17 09/15/17 01:00 06:50 Troponin I 5.02 H* 5.65 H* B-Natriuretic Peptide Imaging - Results Chest X-ray: Report Reviewed (maurilio) EKG: Report Reviewed (normal ecg) Problem List - Problems (1) NSTEMI (non-ST elevated myocardial infarction) Assessment/Plan: Continue aspirin and lovenox for now Echo to assess LV function. start labetalol 100 mg bid and titrate as tolerated by bp and HR statin as well. No plans for cardiac catheterization. Code(s): I21.4 - NON-ST ELEVATION (NSTEMI) MYOCARDIAL INFARCTION
[2017-09-15] MEDS: NICOTINE 14 MG/24 HOURS TOPICAL PATCH TD SCH (14:10)
[2017-09-15] MEDS: LABETALOL HCL 100 MG TABLET (FP) PO SCH ×2 (14:10→22:03)
[2017-09-16] MEDS: INSULIN SLIDING SCALE (NOVOLOG) 1 VIAL SQ SCH ×4 (06:16→21:58)
--- NOTE | 2017-09-16 08:30 | PN ---
Progress Note, Physician Chief Complaint: no further chest pain tele neg had vaginal bleeding last night History of Present Illness: She is a 52 year old woman history of HTN, NIDDM, chol, HIV, substance abuse, smoker not on any medications for > 1 year who was admitted 09/14/17 with chest pain left sided radiating to the left arm, with sob. She has been using cocaine for the past days and was found with no ECG changes but elevated troponin. No recurrent symptoms. Given asa and heparin. Now off asa due to vaginal bleeding. Echo ordered. - Current Medication List Current Medications: Active Medications Aspirin (Ecotrin -) 81 mg PO DAILY [facility] Folic Acid (Folic Acid -) 1 mg PO DAILY [facility] Last Admin: 09/15/17 09:21 Dose: 1 mg Insulin Aspart (Novolog Vial Sliding Scale -) 1 vial SQ ACHS [facility] PRN Reason: Protocol Last Admin: 09/16/17 06:16 Dose: Not Given Labetalol HCl (Normodyne -) 100 mg PO BID [facility] Last Admin: 09/15/17 22:03 Dose: 100 mg Multivitamins/Minerals/Vitamin C (Tab-A-Vit -) 1 tab PO DAILY [facility] Last Admin: 09/15/17 09:21 Dose: 1 tab Nicotine (Nicoderm Patch -) 14 mg TD DAILY [facility] Last Admin: 09/15/17 14:10 Dose: 14 mg Nitroglycerin (Nitrostat -) 0.4 mg SL Q8H PRN PRN Reason: HYPERTENSION Thiamine HCl (Vitamin B1 -) 100 mg PO DAILY [facility] Last Admin: 09/15/17 09:21 Dose: 100 mg - Objective Vital Signs: Vital Signs Temperature 98.5 F 09/16/17 06:17 Pulse Rate 66 09/16/17 06:17 Respiratory Rate 20 09/16/17 06:17 Blood Pressure 140/92 09/16/17 06:17 O2 Sat by Pulse Oximetry (%) 99 09/15/17 21:00 Constitutional: Yes: Well Nourished, No Distress Eyes: Yes: EOM Intact HENT: Yes: Normocephalic Neck: Yes: Trachea Midline Cardiovascular: Yes: Regular Rate and Rhythm Respiratory: Yes: CTA Bilaterally Gastrointestinal: Yes: Normal Bowel Sounds Musculoskeletal: Yes: WNL Extremities: Yes: WNL Edema: No Peripheral Pulses WNL: Yes Labs: CBC, BMP 09/15/17 06:50 INR, PTT INR 0.93 (0.82-1.09) 09/14/17 14:24 Problem List - Problems (1) NSTEMI (non-ST elevated myocardial infarction) Assessment/Plan: Continue aspirin. Off lovenox and plavix due to vaginal bleeding. Echo to assess LV function. start labetalol 100 mg bid and titrate as tolerated by bp and HR statin as well. No plans for cardiac catheterization. Code(s): I21.4 - NON-ST ELEVATION (NSTEMI) MYOCARDIAL INFARCTION
[2017-09-16] MEDS: LABETALOL HCL 100 MG TABLET (FP) PO SCH ×2 (10:16→21:55)
[2017-09-16] MEDS: MULTIVITAMINS (DAILY MVI) TABLET (FP) PO SCH (10:16)
[2017-09-16] MEDS: ASPIRIN COATED 81 MG TABLET.EC PO SCH (10:16)
[2017-09-16] MEDS: NICOTINE 14 MG/24 HOURS TOPICAL PATCH TD SCH (10:16)
[2017-09-16] MEDS: THIAMINE HCL 100 MG TABLET (FP) PO SCH (10:16)
[2017-09-16] MEDS: FOLIC ACID 1 MG TABLET (FP) PO SCH (10:16)
--- NOTE | 2017-09-16 11:29 | PN ---
<Abelardo Florez - Last Filed: 09/16/17 11:25> Physical Exam: SUBJECTIVE: Patient seen and examined Patient complains of mild chest pain overnight. Feels well this morning. No complaints currently. No more episodes of vaginal bleeding OBJECTIVE: Vital Signs Period Temp Pulse Resp BP Sys/Dunaway Pulse Ox Last 24 Hr 98 F-98.8 F 66-81 18-20 128-151/76-97 99 GENERAL: Awake, alert, and fully oriented, in no acute distress. HEAD: Normal with no signs of trauma. EYES: Extraocular movements intact, sclera anicteric, conjunctiva clear. No lid lag. EARS, NOSE, THROAT: Oropharynx clear without exudates. Moist mucous membranes NECK: Normal range of motion, supple without JVD, or masses. CHEST: Nontender LUNGS: Breath sounds equal, clear to auscultation bilaterally. No wheezes, and no crackles. No accessory muscle use. HEART: Regular rate and rhythm, normal S1 and S2 without murmur, rub or gallop. ABDOMEN: Soft, nontender, not distended, normoactive bowel sounds, no guarding, no rebound, no masses. MUSCULOSKELETAL: Normal range of motion at all joints. No bony deformities or tenderness. No CVA tenderness. UPPER EXTREMITIES: warm, well-perfused. No cyanosis. No clubbing. No peripheral edema. LOWER EXTREMITIES: warm, well-perfused. No calf tenderness. No peripheral edema. NEUROLOGICAL: Normal speech. Facial symmetry PSYCHIATRIC: Cooperative. Good eye contact. Appropriate mood and affect. SKIN: Warm, dry, normal turgor, no rashes or lesions noted, normal capillary refill. Laboratory Results - last 24 hr 09/15/17 09/15/17 09/15/17 06:50 11:38 17:15 POC Glucometer 140 110 Hep C Ab Diagnostic <0.1 Liver Fibrosis Interp 09/15/17 09/16/17 22:02 06:12 POC Glucometer 104 99 Hep C Ab Diagnostic Liver Fibrosis Interp Active Medications Generic Name Dose Route Start Last Admin Trade Name Raghuq PRN Reason Stop Dose Admin Aspirin 81 mg 09/16/17 10:00 09/16/17 10:16 Ecotrin - PO 81 mg DAILY MAMI Administration Folic Acid 1 mg 09/14/17 18:30 09/16/17 10:16 Folic Acid - PO 1 mg DAILY MAMI Administration Insulin Aspart 1 vial 09/14/17 22:00 09/16/17 11:04 Novolog Vial Sliding Scale - SQ Not Given ACHS [facility] Protocol Labetalol HCl 100 mg 09/15/17 14:00 09/16/17 10:16 Normodyne - PO 100 mg BID [facility] Administration Multivitamins/Minerals/Vitamin C 1 tab 09/14/17 18:30 09/16/17 10:16 Tab-A-Vit - PO 1 tab DAILY [facility] Administration Nicotine 14 mg 09/15/17 13:45 09/16/17 10:16 Nicoderm Patch - TD 14 mg DAILY [facility]I Administration Nitroglycerin 0.4 mg 09/15/17 05:56 Nitrostat - SL Q8H PRN HYPERTENSION Thiamine HCl 100 mg 09/14/17 18:30 09/16/17 10:16 Vitamin B1 - PO 100 mg DAILY MAMI Administration ASSESSMENT/PLAN: 52 yr old woman with polysubstance abuse, HIV(not on treatment) presented to [facility] for detox and was transferred to [facility] ED for evaluation of her chest pain. # NSTEMI Continue tele monitoring Trend troponins, uptrending Echo pending continue aspirin lovenox and plavix held 2/2 to vaginal bleeding continue labetolol consult: Dr. Garcia #Vaginal bleeding, likely 2/2 to lovenox, resolved Hold lovenox/plavix Last Model Department Supervisor consult TVUS pending # Polysubstance abuse (Alcohol/cocaine/nicotine) currently CIWA score- 0, will refer to outpt rehab Folic acid, Thiamine, MVI Nicotine Patch Counseled on smoking cessation #Transaminitis r/o hepatitis, acute panel pending # ZEYAD on CKD Creatinine elevate monitor cr, urine output Avoid Nephrotoxic drugs # Diabetes Mellitus, a1c 7.5 BGM ISS Watch for hypoglycemic episodes # Hypertension-Not controlled continue labetolol # HIV - noncompliant Unknown CD4 count, not on HAART therapy since a year CD4 count pending Patient declined referral to [facility], says its too far, recommended patient find physician close to her area of choice no acute need to start HAART therapy # FEN Not on IV fluids, tolerating PO Electrolytes WNL Diabetic/low Na/low fat Diet # Prophylaxis For DVT: none 2/2 to vaginal bleeding For GI: Not indicated # Code Status: Full Code Visit type - Emergency Visit Emergency Visit: Yes ED Registration Date: 09/14/17 Care time: The patient presented to the Emergency Department on the above date and was hospitalized for further evaluation of their emergent condition. 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
[2017-09-16] MEDS ORDERED: ATORVASTATIN CA 40 MG TABLET (FP) PO SCH (22:00)
--- NOTE | 2017-09-16 22:07 | PN ---
Progress Note (SOAP) - Subjective Chief Complaint: postmenopausal bleeding History of Present Illness: 52 y/o admitted with other medical issues. Noteed to have vaginal bleeding then stopped. Off blood blood thinners now. Since pmb would rec endometrial biopsy - Current Medications Current Medications: Active Medications Aspirin (Ecotrin -) 81 mg PO DAILY [facility] Last Admin: 09/16/17 10:16 Dose: 81 mg Atorvastatin Calcium (Lipitor -) 40 mg PO HS [facility] Last Admin: 09/16/17 21:55 Dose: 40 mg Folic Acid (Folic Acid -) 1 mg PO DAILY [facility] Last Admin: 09/16/17 10:16 Dose: 1 mg Insulin Aspart (Novolog Vial Sliding Scale -) 1 vial SQ ACHS [facility] PRN Reason: Protocol Last Admin: 09/16/17 21:58 Dose: Not Given Labetalol HCl (Normodyne -) 100 mg PO BID [facility] Last Admin: 09/16/17 21:55 Dose: 100 mg Multivitamins/Minerals/Vitamin C (Tab-A-Vit -) 1 tab PO DAILY [facility] Last Admin: 09/16/17 10:16 Dose: 1 tab Nicotine (Nicoderm Patch -) 14 mg TD DAILY [facility] Last Admin: 09/16/17 10:16 Dose: 14 mg Nitroglycerin (Nitrostat -) 0.4 mg SL Q8H PRN PRN Reason: HYPERTENSION Thiamine HCl (Vitamin B1 -) 100 mg PO DAILY [facility] Last Admin: 09/16/17 10:16 Dose: 100 mg - Objective Vital Signs: Vital Signs Temperature 98.8 F 09/16/17 17:00 Pulse Rate 70 09/16/17 17:00 Respiratory Rate 18 09/16/17 17:00 Blood Pressure 150/106 09/16/17 17:00 O2 Sat by Pulse Oximetry (%) 99 09/16/17 09:00 Constitutional: Yes: Well Nourished Eyes: Yes: WNL HENT: Yes: WNL Neck: Yes: WNL Cardiovascular: Yes: WNL Respiratory: Yes: WNL Gastrointestinal: Yes: WNL ...Rectal Exam: Yes: WNL Genitourinary: Yes: WNL Labs Lab Results: CBC, BMP 09/15/17 06:50 Assessment/Plan as above would see pt as outpatient for endobiopsy consider sono in hosp
[2017-09-17] MEDS: INSULIN SLIDING SCALE (NOVOLOG) 1 VIAL SQ SCH ×3 (06:17→16:50)
[2017-09-17 06:32] LABS: BASO % 0.9 % (0-2.0); EOS % 5.5 % (0-4.5); HEMATOCRIT 35.5 % (32.4-45.2); LYMPH % 47.6 % (8-40); MCH 27.7 pg (25.7-33.7); MCHC 33.7 g/dl (32.0-36.0); MEAN CELL VOLUME 82.3 fl (80-96); MEAN PLT VOLUME 9.8 fl (7.5-11.1); MONO % 13.2 % (3.8-10.2); NEUT % 32.8 % (42.8-82.8); PLATELET COUNT 298 K/MM3 (134-434); RBC 4.32 M/mm3 (3.60-5.2); RDW 14.3 % (11.6-15.6); WHITE BLOOD COUNT 4.6 K/mm3 (4.0-10.0)
[2017-09-17 07:11] LABS: ANION GAP 8 (8-16); BLOOD UREA NITROGEN 30 mg/dL (7-18); CALCIUM 9.1 mg/dL (8.5-10.1); CHLORIDE 114 mmol/L (98-107); CO2 22 mmol/L (21-32); GLUCOSE,RANDOM 103 mg/dL (74-106); POTASSIUM 4.4 mmol/L (3.5-5.1); SODIUM 144 mmol/L (136-145)
[2017-09-17 07:30] LABS: CREATININE 2.4 mg/dL (0.55-1.02)
[2017-09-17] MEDS: FOLIC ACID 1 MG TABLET (FP) PO SCH (09:05)
[2017-09-17] MEDS: ASPIRIN COATED 81 MG TABLET.EC PO SCH (09:05)
[2017-09-17] MEDS: MULTIVITAMINS (DAILY MVI) TABLET (FP) PO SCH (09:05)
[2017-09-17] MEDS: LABETALOL HCL 100 MG TABLET (FP) PO SCH (09:05)
[2017-09-17] MEDS: NICOTINE 14 MG/24 HOURS TOPICAL PATCH TD SCH (09:05)
[2017-09-17] MEDS: THIAMINE HCL 100 MG TABLET (FP) PO SCH (09:05)
--- NOTE | 2017-09-17 14:58 | PN ---
Physical Exam: SUBJECTIVE: Patient seen and examined OBJECTIVE: Vital Signs Period Temp Pulse Resp BP Sys/Dunaway Pulse Ox Last 24 Hr 97.8 F-98.8 F 60-70 18-20 134-156/92-107 99-100 GENERAL: The patient is awake, alert, and fully oriented, in no acute distress. HEAD: Normal with no signs of trauma. EYES: PERRL, extraocular movements intact, sclera anicteric, conjunctiva clear. No ptosis. ENT: Ears normal, nares patent, oropharynx clear without exudates, moist mucous membranes. NECK: Trachea midline, full range of motion, supple. LUNGS: Breath sounds equal, clear to auscultation bilaterally, no wheezes, no crackles, no accessory muscle use. HEART: Regular rate and rhythm, S1, S2 without murmur, rub or gallop. ABDOMEN: Soft, nontender, nondistended, normoactive bowel sounds, no guarding, no rebound, no hepatosplenomegaly, no masses. EXTREMITIES: 2+ pulses, warm, well-perfused, no edema. NEUROLOGICAL: Cranial nerves II through XII grossly intact. Normal speech, gait not observed. PSYCH: Normal mood, normal affect. SKIN: Warm, dry, normal turgor, no rashes or lesions noted Laboratory Results - last 24 hr 09/14/17 09/16/17 09/16/17 19:00 17:21 21:57 WBC 5.3 RBC Hgb Hct MCV MCH MCHC RDW Plt Count MPV Absolute Lymphs (auto) 2.7 Neutrophils % Lymphocytes % Monocytes % Eosinophils % Basophils % Lymphocytes 50 Nucleated RBCs TNP Sodium Potassium Chloride Carbon Dioxide Anion Gap BUN Creatinine POC Glucometer 113 111 Random Glucose Calcium Troponin I Absolute CD3 Count 2371 % CD3+ Lymphocytes 87.8 H Absolute CD4 [place] 408 % CD4+ Lymphocyte 15.1 L CD4/CD8 Ratio 0.21 L % CD8+ Lymphocyte 70.4 H Absolute CD8 Count 1901 H 09/17/17 09/17/17 09/17/17 05:27 06:10 06:10 WBC 4.6 D RBC 4.32 Hgb 12.0 Hct 35.5 MCV 82.3 MCH 27.7 MCHC 33.7 RDW 14.3 Plt Count 298 MPV 9.8 Absolute Lymphs (auto) Neutrophils % 32.8 L Lymphocytes % 47.6 H Monocytes % 13.2 H Eosinophils % 5.5 H Basophils % 0.9 Lymphocytes Nucleated RBCs Sodium 144 Potassium 4.4 Chloride 114 H Carbon Dioxide 22 Anion Gap 8 BUN 30 H Creatinine 2.4 H POC Glucometer 103 Random Glucose 103 Calcium 9.1 Troponin I 1.60 H* Absolute CD3 Count % CD3+ Lymphocytes Absolute CD4 [place] % CD4+ Lymphocyte CD4/CD8 Ratio % CD8+ Lymphocyte Absolute CD8 Count Active Medications Generic Name Dose Route Start Last Admin Trade Name Freq PRN Reason Stop Dose Admin Aspirin 81 mg 09/16/17 10:00 09/17/17 09:05 Ecotrin - PO 81 mg DAILY [facility] Administration Atorvastatin Calcium 40 mg 09/16/17 22:00 09/16/17 21:55 Lipitor - PO 40 mg HS [facility] Administration Folic Acid 1 mg 09/14/17 18:30 09/17/17 09:05 Folic Acid - PO 1 mg DAILY [facility] Administration Insulin Aspart 1 vial 09/14/17 22:00 09/17/17 11:48 Novolog Vial Sliding Scale - SQ Not Given ACHS [facility] Protocol Labetalol HCl 100 mg 09/15/17 14:00 09/17/17 09:05 Normodyne - PO 100 mg BID [facility] Administration Multivitamins/Minerals/Vitamin C 1 tab 09/14/17 18:30 09/17/17 09:05 Tab-A-Vit - PO 1 tab DAILY [facility] Administration Nicotine 14 mg 09/15/17 13:45 09/17/17 09:05 Nicoderm Patch - TD 14 mg DAILY [facility] Administration Nitroglycerin 0.4 mg 09/15/17 05:56 Nitrostat - SL Q8H PRN HYPERTENSION Thiamine HCl 100 mg 09/14/17 18:30 09/17/17 09:05 Vitamin B1 - PO 100 mg DAILY [facility] Administration ASSESSMENT/PLAN:
--- NOTE | 2017-09-17 14:59 | PN ---
Progress Note, Physician Chief Complaint: Cardiology FU Telem NSR No chest pain History of Present Illness: 52 year old woman history of HTN, NIDDM, chol, HIV, substance abuse, smoker not on any medications for > 1 year who was admitted 09/14/17 with chest pain left sided radiating to the left arm, with sob. She has been using cocaine for the past days and was found with no ECG changes but elevated troponin. No recurrent symptoms. Given asa and heparin. Now off asa due to vaginal bleeding. Echo ordered. - Current Medication List Current Medications: Active Medications Aspirin (Ecotrin -) 81 mg PO DAILY [facility] Last Admin: 09/17/17 09:05 Dose: 81 mg Atorvastatin Calcium (Lipitor -) 40 mg PO HS [facility] Last Admin: 09/16/17 21:55 Dose: 40 mg Folic Acid (Folic Acid -) 1 mg PO DAILY [facility] Last Admin: 09/17/17 09:05 Dose: 1 mg Insulin Aspart (Novolog Vial Sliding Scale -) 1 vial SQ ACHS [facility] PRN Reason: Protocol Last Admin: 09/17/17 11:48 Dose: Not Given Labetalol HCl (Normodyne -) 100 mg PO BID [facility] Last Admin: 09/17/17 09:05 Dose: 100 mg Multivitamins/Minerals/Vitamin C (Tab-A-Vit -) 1 tab PO DAILY [facility] Last Admin: 09/17/17 09:05 Dose: 1 tab Nicotine (Nicoderm Patch -) 14 mg TD DAILY [facility] Last Admin: 09/17/17 09:05 Dose: 14 mg Nitroglycerin (Nitrostat -) 0.4 mg SL Q8H PRN PRN Reason: HYPERTENSION Thiamine HCl (Vitamin B1 -) 100 mg PO DAILY [facility] Last Admin: 09/17/17 09:05 Dose: 100 mg - Objective Vital Signs: Vital Signs Temperature 98 F 09/17/17 10:00 Pulse Rate 64 09/17/17 10:00 Respiratory Rate 18 09/17/17 10:00 Blood Pressure 152/103 09/17/17 10:00 O2 Sat by Pulse Oximetry (%) 100 09/17/17 09:00 Constitutional: Yes: Well Nourished, No Distress, Calm Eyes: Yes: Conjunctiva Clear HENT: Yes: Atraumatic, Normocephalic Neck: Yes: Supple, Trachea Midline Cardiovascular: Yes: Regular Rate and Rhythm Respiratory: Yes: Regular, CTA Bilaterally Gastrointestinal: Yes: Normal Bowel Sounds Labs: CBC, BMP 09/17/17 06:10 09/17/17 06:10 INR, PTT INR 0.93 (0.82-1.09) 09/14/17 14:24 Problem List - Problems (1) Chest pain Code(s): R07.9 - CHEST PAIN, UNSPECIFIED Qualifiers: Chest pain type: unspecified Qualified Code(s): R07.9 - Chest pain, unspecified (2) NSTEMI (non-ST elevated myocardial infarction) Code(s): I21.4 - NON-ST ELEVATION (NSTEMI) MYOCARDIAL INFARCTION Assessment/Plan Echocardiogram showing normal biventricular function without valvular pathology. Continue aspirin. Off lovenox and plavix due to vaginal bleeding. Continue Labetalol and statin No plans for cardiac catheterization.
--- NOTE | 2017-09-17 15:12 | DS ---
Physical Exam: Selected Entries 09/17/17 09/17/17 09:00 10:00 Temperature 98 F Pulse Rate 64 Respiratory 18 Rate Blood Pressure 152/103 O2 Sat by Pulse 100 Oximetry (%) Oxygen Delivery Room Air Method Laboratory Tests 09/14/17 09/14/17 09/14/17 16:08 19:00 19:00 WBC Hgb Hct Plt Count Sodium Potassium Chloride Carbon Dioxide Anion Gap BUN Creatinine 2.0 H Troponin I 1.20 H* 2.52 H* Triglycerides 197 H Cholesterol 237 H Total LDL Cholesterol 174 H HDL Cholesterol 33 L Urine Protein Urine Glucose (UA) Urine Blood Ur Leukocyte Esterase Urine WBC (Auto) Urine RBC (Auto) Opiates Screen Methadone Screen Barbiturate Screen Phencyclidine Screen Ur Amphetamines Screen MDMA (Ecstasy) Screen Benzodiazepines Screen Cocaine Screen U Marijuana (THC) Screen Absolute CD3 Count 2371 % CD3+ Lymphocytes 87.8 H Absolute CD4 [place] 408 % CD4+ Lymphocyte 15.1 L CD4/CD8 Ratio 0.21 L % CD8+ Lymphocyte 70.4 H Absolute CD8 Count 1901 H Hepatitis A Ab Total Hep Bs Antigen Hep Bs Antibody Hep B Core Total Ab Hep C Ab Diagnostic Liver Fibrosis Inter 09/15/17 09/15/17 09/15/17 01:00 01:13 04:00 WBC Hgb Hct Plt Count Sodium Potassium Chloride Carbon Dioxide Anion Gap BUN Creatinine Troponin I 5.02 H* Triglycerides Cholesterol Total LDL Cholesterol HDL Cholesterol Urine Protein 2+ H Urine Glucose (UA) 1+ H Urine Blood 1+ H Ur Leukocyte Esterase 3+ H Urine WBC (Auto) None Urine RBC (Auto) 22 Opiates Screen Negative Methadone Screen Negative Barbiturate Screen Negative Phencyclidine Screen Negative Ur Amphetamines Screen Negative MDMA (Ecstasy) Screen Negative Benzodiazepines Screen Negative Cocaine Screen Positive U Marijuana (THC) Screen Negative Absolute CD3 Count % CD3+ Lymphocytes Absolute CD4 Valley % CD4+ Lymphocyte CD4/CD8 Ratio % CD8+ Lymphocyte Absolute CD8 Count Hepatitis A Ab Total Hep Bs Antigen Hep Bs Antibody Hep B Core Total Ab Hep C Ab Diagnostic Liver Fibrosis Inter 09/15/17 09/15/17 09/15/17 06:50 06:50 06:50 WBC Hgb Hct Plt Count Sodium Potassium Chloride Carbon Dioxide Anion Gap BUN 19 H Creatinine 2.1 H Troponin I 5.65 H* Triglycerides Cholesterol Total LDL Cholesterol HDL Cholesterol Urine Protein Urine Glucose (UA) Urine Blood Ur Leukocyte Esterase Urine WBC (Auto) Urine RBC (Auto) Opiates Screen Methadone Screen Barbiturate Screen Phencyclidine Screen Ur Amphetamines Screen MDMA (Ecstasy) Screen Benzodiazepines Screen Cocaine Screen U Marijuana (THC) Screen Absolute CD3 Count % CD3+ Lymphocytes Absolute CD4 Valley % CD4+ Lymphocyte CD4/CD8 Ratio % CD8+ Lymphocyte Absolute CD8 Count Hepatitis A Ab Total Pending Hep Bs Antigen Pending Hep Bs Antibody Pending Hep B Core Total Ab Pending Hep C Ab Diagnostic <0.1 Liver Fibrosis Interp 09/17/17 09/17/17 06:10 06:10 WBC 4.6 D Hgb 12.0 Hct 35.5 Plt Count 298 Sodium 144 Potassium 4.4 Chloride 114 H Carbon Dioxide 22 Anion Gap 8 BUN 30 H Creatinine 2.4 H Troponin I 1.60 H* Triglycerides Cholesterol Total LDL Cholesterol HDL Cholesterol Urine Protein Urine Glucose (UA) Urine Blood Ur Leukocyte Esterase Urine WBC (Auto) Urine RBC (Auto) Opiates Screen Methadone Screen Barbiturate Screen Phencyclidine Screen Ur Amphetamines Screen MDMA (Ecstasy) Screen Benzodiazepines Screen Cocaine Screen U Marijuana (THC) Screen Absolute CD3 Count % CD3+ Lymphocytes Absolute CD4 Valley % CD4+ Lymphocyte CD4/CD8 Ratio % CD8+ Lymphocyte Absolute CD8 Count Hepatitis A Ab Total Hep Bs Antigen Hep Bs Antibody Hep B Core Total Ab Hep C Ab Diagnostic Liver Fibrosis Interp Echo--- LV normal, EF 65-70%, mild thickening of aortic valve Head ct-- Extensive periventricular white matter low-attenuation densities mainly in both frontal lobes, anteriorly suggestive of white matter disease considering the patient's age. Differential diagnosis includes demyelinating disease/multiple sclerosis, among other possibilities. Further evaluation with MRI of the brain preferably with intravenous contrast is recommended. The calvarium is intact. No gross acute intracranial hemorrhage is identified. CXR-- Impression: No acute pathology. Improvement since prior exam. TVUS--Retroverted fibroid uterus, as described above. The fibroid at the fundus measures 2.5 x 2.1 cm. Normal thickness of the endometrial stripe. Normal- appearing left ovary. Right ovary was not visualized. HOSPITAL COURSE: Date of Admission:09/14/17 Date of Discharge: 09/17/17 52 yr old woman with polysubstance abuse, HIV(not on treatment) presented to [facility] for detox and was transferred to [facility] ED for evaluation of her chest pain. Patient placed into obs for r/o acs. Troponins were elevated. Patient treated for NSTEMI with aspirin, lovenox, and labetolol. Patient was started on lipitor 40 and echocardiogram was done (results above). Patient had vaginal bleeding and lovenox was dc. TVUS performed and barbering teacher evaluated pateint.. Patient will be d/c back home with f/u. No current plans for cardiac catheterization, but patient will f/u with cardiology and barbering teacher (for endometrial biopsy). Minutes to complete discharge: 40 <Abelardo Florez - Last Filed: 09/17/17 16:30> Physical Exam: Patient is comfortable, discussed with care attendant can be discharged home on aspirin, echo is unremarkable. Also during her stay developed vaginal bleeding Lovenox and plavix was discontinued, then bleeding stopped , continued with aspirin, being discharged on Aspirin. follow with cardio as an outpatient, and obgyn as an outpatient for further w/u. Vital Signs Temperature 98.7 F 09/17/17 17:55 Pulse Rate 77 09/17/17 17:55 Respiratory Rate 18 09/17/17 17:55 Blood Pressure 153/90 09/17/17 17:55 O2 Sat by Pulse Oximetry (%) 100 09/17/17 09:00 CBCD WBC 4.6 K/mm3 (4.0-10.0) D 09/17/17 06:10 RBC 4.32 M/mm3 (3.60-5.2) 09/17/17 06:10 Hgb 12.0 GM/dL (10.7-15.3) 09/17/17 06:10 Hct 35.5 % (32.4-45.2) 09/17/17 06:10 MCV 82.3 fl (80-96) 09/17/17 06:10 MCHC 33.7 g/dl (32.0-36.0) 09/17/17 06:10 RDW 14.3 % (11.6-15.6) 09/17/17 06:10 Plt Count 298 K/MM3 (134-434) 09/17/17 06:10 MPV 9.8 fl (7.5-11.1) 09/17/17 06:10 CMP Sodium 144 mmol/L (136-145) 09/17/17 06:10 Potassium 4.4 mmol/L (3.5-5.1) 09/17/17 06:10 Chloride 114 mmol/L (98-107) H 09/17/17 06:10 Carbon Dioxide 22 mmol/L (21-32) 09/17/17 06:10 Anion Gap 8 (8-16) 09/17/17 06:10 BUN 30 mg/dL (7-18) H 09/17/17 06:10 Creatinine 2.4 mg/dL (0.55-1.02) H 09/17/17 06:10 Creat Clearance w eGFR 26.37 (>60) 09/14/17 16:08 Random Glucose 103 mg/dL (74-106) 09/17/17 06:10 Calcium 9.1 mg/dL (8.5-10.1) 09/17/17 06:10 Total Bilirubin 0.1 mg/dL (0.2-1.0) L D 09/14/17 16:08 AST 55 U/L (15-37) H 09/14/17 16:08 ALT 52 U/L (12-78) 09/14/17 16:08 Alkaline Phosphatase 103 U/L (45-117) 09/14/17 16:08 Total Protein 7.5 g/dl (6.4-8.2) 09/14/17 16:08 Albumin 2.6 g/dl (3.4-5.0) L 09/14/17 16:08 CARDIAC ENZYMES Creatine Kinase 591 IU/L (26-192) H 09/14/17 19:00 Troponin I 1.60 ng/ml (0.00-0.05) H* 09/17/17 06:10 Home Medications Medication Instructions Recorded Albuterol Sulfate Inhaler - 2 inh PO Q4H PRN #1 inhaler 09/06/17 [Ventolin HFA Inhaler -] Phenytoin Na Extended [Dilantin -] 200 mg PO BID #60 capsule 09/06/17 metFORMIN HCL [Glucophage -] 500 mg PO BID #60 tablet 09/06/17 Aspirin Coated [Ecotrin -] 81 mg PO DAILY #30 tablet.ec 09/17/17 Atorvastatin Ca [Lipitor] 40 mg PO HS #30 tablet 09/17/17 Folic Acid - 1 mg PO DAILY #30 tablet 09/17/17 Labetalol HCl [Normodyne -] 100 mg PO BID #60 tablet 09/17/17 Multivitamins [Multivit ([facility] 1 tab PO DAILY #30 tab 09/17/17 Formulary)] Thiamine HCl [Vitamin B1 -] 100 mg PO DAILY #30 tablet 09/17/17 <Oscar Wilde - Last Filed: 09/17/17 20:18> Discharge Summary Reason For Visit: CHEST PAIN Current Active Problems Chest pain (Acute) NSTEMI (non-ST elevated myocardial infarction) (Acute) - Home Medications Comprehensive Discharge Medication List: Ambulatory Orders Albuterol Sulfate Inhaler - [Ventolin HFA Inhaler -] 2 inh PO Q4H PRN #1 inhaler 09/06/17 Phenytoin Na Extended [Dilantin -] 200 mg PO BID #60 capsule 09/06/17 metFORMIN HCL [Glucophage -] 500 mg PO BID #60 tablet 09/06/17 Aspirin Coated [Ecotrin -] 81 mg PO DAILY #30 tablet.ec 09/17/17 Atorvastatin Ca [Lipitor] 40 mg PO HS #30 tablet 09/17/17 Folic Acid - 1 mg PO DAILY #30 tablet 09/17/17 Labetalol HCl [Normodyne -] 100 mg PO BID #60 tablet 09/17/17 Multivitamins [Multivit ([facility] Formulary)] 1 tab PO DAILY #30 tab 09/17/17 Thiamine HCl [Vitamin B1 -] 100 mg PO DAILY #30 tablet 09/17/17 <Abelardo Florez - Last Filed: 09/17/17 16:30> - Home Medications Comprehensive Discharge Medication List: Ambulatory Orders Albuterol Sulfate Inhaler - [Ventolin HFA Inhaler -] 2 inh PO Q4H PRN #1 inhaler 09/06/17 Phenytoin Na Extended [Dilantin -] 200 mg PO BID #60 capsule 09/06/17 metFORMIN HCL [Glucophage -] 500 mg PO BID #60 tablet 09/06/17 Aspirin Coated [Ecotrin -] 81 mg PO DAILY #30 tablet.ec 09/17/17 Atorvastatin Ca [Lipitor] 40 mg PO HS #30 tablet 09/17/17 Folic Acid - 1 mg PO DAILY #30 tablet 09/17/17 Labetalol HCl [Normodyne -] 100 mg PO BID #60 tablet 09/17/17 Multivitamins [Multivit ([facility] Formulary)] 1 tab PO DAILY #30 tab 09/17/17 Thiamine HCl [Vitamin B1 -] 100 mg PO DAILY #30 tablet 09/17/17 <Oscar Wilde - Last Filed: 09/17/17 20:18> Condition: Stable - Instructions Diet, Activity, Other Instructions: You were evaluated for your chest in the hospital. You troponin was elevated, which is a marker for damage to your heart, this can be caused by several things including cocaine and a heart attack. You met with a care attendant and a catherterization was offered, but you declined. You were started on blood thinners but had to stop taking them due to bleeding. You were found to have a fibroid in your uterus which may be the cause of your bleeding. Follow-up - Gynecology for further evaluation of your fibroid - [facility] for further evaluation for re-starting your HAART medications phone:[phone] Address: [address] [address] - Primary care for post-hospital evaluation, if you do not have one, contact information for a clinic has been provided - Cardiology, for further evaluation of your heart. Contact information has been provided, please call to make appointments. Medications: Take a thiamine, folic acid and multi-vitamin tablet daily for your health Take lipitor 40mg 1 tablet every night for your cholesterol Take a baby aspirin, 1 tablet of 81mg, daily for your heart health Prescriptions have been sent to the pharmacy of your choice Recommendations: Please continue your drug rehabilitation. [facility] offers outpatient rehabiliation, if you chose not to go to inpatient rehab. Address: [address] [facility] [facility] [address] If you develop worsening chest pain, trouble breathing, syncope or any new concerning symptoms please return to the hospital. Referrals: [facility] [place] [facility] [Provider Group] Lenin Garcia MD [Staff Physician] - Rosalina Owen NP [Nurse Practitioner] - Adria Hunt MD [Staff Physician] - Bessy Balderas MD [Staff Physician] - Disposition: HOME This patient is new to me today: No Emergency Visit: Yes ED Registration Date: 09/14/17 Care time: The patient presented to the Emergency Department on the above date and was hospitalized for further evaluation of their emergent condition. Critical Care patient: No - Discharge Referral Referred to [facility] No <Abelardo Florez - Last Filed: 09/17/17 16:30>
[2017-09-17 18:46] VITALS: BP 153/90; PULSE 77; TEMP 98.7
[2017-09-18 00:13] LABS: HBSAG SCREEN Negative (Negative); HEP A AB, IGM Negative (Negative); HEP B CORE AB, TOT Positive (Negative)
== END 2017-09-17 19:30 | disposition home or self-care (01) | DRG 190 ==
LOC: JER 12:55 → JERBED 17:50 → J4W 21:05
PROVIDERS: ADMIT Emergency Medicine; ATTEND Internal Medicine
DX: I21.4 Non-ST elevation (NSTEMI) myocardial infarction (principal); R07.89 Other chest pain; Z21 Asymptomatic human immunodeficiency virus [HIV] infection status; G40.909 Epilepsy, unspecified, not intractable, without status epilepticus; E11.9 Type 2 diabetes mellitus without complications; I10 Essential (primary) hypertension; E78.5 Hyperlipidemia, unspecified; F20.89 Other schizophrenia; F19.10 Other psychoactive substance abuse, uncomplicated; R74.0 Nonspecific elevation of levels of transaminase and lactic acid dehydrogenase [LDH]; J45.909 Unspecified asthma, uncomplicated; N17.9 Acute kidney failure, unspecified; I12.9 Hypertensive chronic kidney disease with stage 1 through stage 4 chronic kidney disease, or unspecified chronic kidney disease; E11.22 Type 2 diabetes mellitus with diabetic chronic kidney disease; N18.9 Chronic kidney disease, unspecified; F10.10 Alcohol abuse, uncomplicated; H54.62 Unqualified visual loss, left eye, normal vision right eye; F14.10 Cocaine abuse, uncomplicated; F17.210 Nicotine dependence, cigarettes, uncomplicated; N93.9 Abnormal uterine and vaginal bleeding, unspecified; D25.9 Leiomyoma of uterus, unspecified; Z91.14 Patient's other noncompliance with medication regimen; Z86.73 Personal history of transient ischemic attack (TIA), and cerebral infarction without residual deficits
CPT/HCPCS: 36415; 70450-TC; 71045-TC-FY; 76830-TC; 80048; 80053; 80061; 80307; 81003; 81015; 82550; 82553; 82570; 82962; 83036; 83721; 83930; 83935; 84300; 84484; 85025; 85610; 86359; 86360; 86704; 86706; 86708; 87340; 93005; 93010; 93306-TC; 99285-25

== ENCOUNTER 2017-11-09 12:42 | Inpatient (IN) | payer OTHER ==
[2017-11-09 13:57] VITALS: BMI 24.7
--- NOTE | 2017-11-09 17:05 | HP ---
CIWA Score - CIWA Score Nausea/Vomitin-Mild Nausea/No Vomiting Muscle Tremors: 2 Anxiety: 2 Agitation: 1-Slight > Activity Paroxysmal Sweats: 2 Orientation: 1-Uncertain about Date Tacttile Disturbances: 1-Very Mild Itch/Numbness Auditory Disturbances: 1-Very Mild Visual Disturbances: 1-Very Mild Sensitivity Headache: 1-Very Mild CIWA-Ar Total Score: 13 Admission ROS [facility] - HPI Chief Complaint: Withdrawal symptoms Allergies/Adverse Reactions: Allergies Allergy/AdvReac Type Severity Reaction Status Date / Time diphenhydramine HCl Allergy Swelling Verified 11/09/17 16:26 [From Benadryl] peanut Allergy Swelling Verified 11/09/17 16:26 peanuts Allergy Swelling Uncoded 11/09/17 16:26 History of Present Illness: 52 y.o. woman with a history of alcohol dependence is here seeking detox. She has had multiple admissions here with the last being in 08/2017. Longest period of sobriety has been 3 years. 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) Respiratory: reports: No Symptoms reported Cardiac: reports: No Symptoms Reported GI: reports: No Symptoms Reported : reports: No Symptoms Reported Musculoskeletal: reports: No Symptoms Reported Integumentary: reports: No Symptoms Reported Neuro: reports: Headache Endocrine: reports: No Symptoms Reported Hematology: reports: No Symptoms Reported Psychiatric: reports: Orientated x3, other (Paronoid schizophrenia) Other Systems: Reviewed and Negative Patient History - Patient Medical History Hx Anemia: No Hx Asthma: Yes Hx Chronic Obstructive Pulmonary Disease (COPD): No Hx Cancer: No Hx Cardiac Disorders: No Hx Congestive Heart Failure: No Hx Hypertension: Yes Hx Hypercholesterolemia: Yes Hx Pacemaker: No HX Cerebrovascular Accident: Yes (left vision loss ) Hx Seizures: Yes (Does not recall most recent seizure but states it was "a long bismark ago". ) Hx Dementia: No Hx Diabetes: Yes (Not taking meds) Hx Gastrointestinal Disorders: No Hx Liver Disease: No Hx Genitourinary Disorders: No Hx Sexually Transmitted Disorders: No Hx Renal Disease (ESRD): No Hx Thyroid Disease: No Hx Human Immunodeficiency Virus (HIV): Yes (dx'ed 1997) Hx Hepatitis C: No Hx Depression: Yes Hx Suicide Attempt: No Hx Bipolar Disorder: No Hx Schizophrenia: Yes Other Medical History: CKD - Patient Surgical History Past Surgical History: No Hx Neurologic Surgery: No Hx Cataract Extraction: No Hx Cardiac Surgery: No Hx Lung Surgery: No Hx Breast Surgery: No Hx Breast Biopsy: No Hx Abdominal Surgery: No Hx Appendectomy: No Hx Cholecystectomy: No Hx Genitourinary Surgery: No Hx Section: No Hx Orthopedic Surgery: No Hx Hysterectomy: No Anesthesia Reaction: No - PPD History Previous Implant?: Yes Documented Results: Negative w/proof Date: 06/01/17 Results: 0MM PPD to be Administered?: No - Reproductive History Patient is a Female of Child Bearing Age (11 -55 yrs old): Yes Last Menstrual Period: 09/27/16 Patient : No - Smoking Cessation Smoking history: Current every day smoker Have you smoked in the past 12 months: Yes Aproximately how many cigarettes per day: 30 Cigars Per Day: 0 Hx Chewing Tobacco Use: No Initiated information on smoking cessation: Yes 'Breaking Loose' booklet given: 11/09/17 - Substance & Tx. History Hx Alcohol Use: Yes Hx Substance Use: Yes Substance Use Type: Alcohol, Cocaine Hx Substance Use Treatment: Yes (Detox: 08/2017) - Substances Abused Alcohol Route: Oral Frequency: Daily Amount used: LIQUOR- 1 PINT, BEER- 1 SIX PACK Age of first use: 19 Date of Last Use: 11/08/17 Crack Route: Smoking Frequency: Daily Amount used: $100 WORTH Age of first use: 19 Date of Last Use: 11/08/17 Family Disease History - Family Disease History Family Disease History: Diabetes: Sister (hiv - ), Heart Disease: Mother (htn - ), Other: Father (/HIV), Mother, Brother (NO CONTACT), Sister Admission Physical Exam S - Vital Signs Vital Signs: Vital Signs - 24 hr 11/09/17 13:55 Temperature 97.3 F L Pulse Rate 59 L Respiratory 17 Rate Blood Pressure 154/103 - Physical General Appearance: Yes: Disheveled HEENTM: Yes: Normocephalic, Normal Voice, Other (Poor dentation) Respiratory: Yes: Lungs Clear, Normal Breath Sounds, No Respiratory Distress, No Accessory Muscle Use Neck: Yes: No masses,lesions,Nodules, Trachea in good position Breast: Yes: Breast Exam Deferred Cardiology: Yes: Regular Rhythm Abdominal: Yes: Normal Bowel Sounds, Non Tender, Flat Genitourinary: Yes: Within Normal Limits (No complaints reported) Back: Yes: Normal Inspection Musculoskeletal: Yes: Back pain Extremities: Yes: Normal Capillary Refill, Normal Inspection, Normal Range of Motion, Non-Tender Neurological: Yes: rn physician office II-XII NML intact, Fully Oriented, Alert, Normal Mood/ Affect, Normal Response Integumentary: Yes: Normal Color, Dry, Warm Lymphatic: Yes: Within Normal Limits - Diagnostic (1) History of seizure Current Visit: Yes Status: Chronic (2) Alcohol dependence with uncomplicated withdrawal Current Visit: Yes Status: Chronic (3) Nicotine dependence Current Visit: Yes Status: Chronic Qualifiers: Nicotine product type: cigarettes Substance use status: in withdrawal Qualified Code(s): F17.213 - Nicotine dependence, cigarettes, with withdrawal (4) Asthma Current Visit: Yes Status: Chronic Qualifiers: Asthma severity: mild Asthma persistence: persistent Asthma complication type: with status asthmaticus Qualified Code(s): J45.32 - Mild persistent asthma with status asthmaticus (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 (6) DM (diabetes mellitus) Current Visit: Yes Status: Chronic Qualifiers: Diabetes mellitus type: type 2 Diabetes mellitus complication status: with unspecified complications Qualified Code(s): E11.8 - Type 2 diabetes mellitus with unspecified complications (7) HIV (human immunodeficiency virus infection) Current Visit: Yes Status: Chronic Comment: NOT ON ANY MEDICATION FOR "MONTHS" (8) HTN (hypertension) Current Visit: Yes Status: Chronic Qualifiers: Hypertension type: essential hypertension Qualified Code(s): I10 - Essential (primary) hypertension (9) Hyperlipidemia Current Visit: Yes Status: Chronic Qualifiers: Hyperlipidemia type: pure hypercholesterolemia Qualified Code(s): E78.00 - Pure hypercholesterolemia, unspecified; E78.0 - Pure hypercholesterolemia Cleared for Admission [facility] - Detox or Rehab [facility] Level of Care: Medically Managed Detox Regimen/Protocol: Librium S Breath Alcohol Content Breath Alcohol Content: 0 Urine Pregancy Test - Result Urine Test Results: Negative- NO Line Present Urine Drug Screen - Results Drug Screen Negative: Yes
[2017-11-09] MEDS ORDERED: guaiFENesin/D-METHORPHAN HB 10 ML UNIT-DOSE CUPS PO PRN (17:24)
[2017-11-09] MEDS ORDERED: LOPERAMIDE HCL 2 MG CAPSULE PO PRN (17:24)
[2017-11-09] MEDS ORDERED: ACETAMINOPHEN 325 MG TABLET (FP) PO PRN (17:24)
[2017-11-09] MEDS ORDERED: MAG HYDROX/AL HYDROX/SIMETH 30 ML UNIT-DOSE CUP PO PRN (17:24)
[2017-11-09] MEDS ORDERED: chlordiazePOXIDE HCL 25 MG CAPSULE PO PRN (17:24)
[2017-11-09] MEDS ORDERED: MAGNESIUM CITRATE 300 ML BOTTLE PO PRN (17:24)
[2017-11-09] MEDS ORDERED: MAGNESIUM HYDROX 2400MG/30ML ORAL SUSPENSION 30 ML CUP PO PRN (17:24)
[2017-11-09] MEDS ORDERED: MENTHOL/PHENOL 1 EACH UD MM PRN (17:24)
[2017-11-09] MEDS ORDERED: NICOTINE POLACRILEX 4 MG GUM BC PRN (17:24)
[2017-11-09] MEDS ORDERED: ALBUTEROL SO4 18 GM HFA INHALER IH PRN (17:26)
[2017-11-09] MEDS ORDERED: chlordiazePOXIDE HCL 25 MG CAPSULE PO ONE (18:15)
[2017-11-09] MEDS ORDERED: cloNIDine HCL 0.1 MG TABLET PO ONE (19:45)
[2017-11-09] MEDS ORDERED: MELATONIN 5 MG TABLETS PO PRN (22:00)
[2017-11-09] MEDS ORDERED: LABETALOL HCL 100 MG TABLET (FP) PO SCH (22:00)
[2017-11-09] MEDS: LABETALOL HCL 100 MG TABLET (FP) PO SCH (22:28)
[2017-11-09] MEDS: ATORVASTATIN CA 40 MG TABLET (FP) PO SCH (22:28)
[2017-11-09] MEDS: chlordiazePOXIDE HCL 25 MG CAPSULE PO SCH (22:28)
[2017-11-09] MEDS: THIAMINE HCL 100 MG TABLET (FP) PO SCH (22:28)
[2017-11-10] MEDS: chlordiazePOXIDE HCL 25 MG CAPSULE PO SCH ×4 (05:44→22:44)
[2017-11-10] MEDS: metFORMIN HCL 500 MG TABLET (FP) PO SCH ×2 (07:50→17:15)
--- NOTE | 2017-11-10 09:52 | PN ---
BHS CIWA - CIWA Score Nausea/Vomitin Muscle Tremors: 2 Anxiety: 2 Agitation: 2 Paroxysmal Sweats: 2 Orientation: 0-Oriented Tacttile Disturbances: 1-Very Mild Itch/Numbness Auditory Disturbances: 0-None Visual Disturbances: 1-Very Mild Sensitivity Headache: 2-Mild CIWA-Ar Total Score: 14 BHS Progress Note (SOAP) Subjective: Irritability, interrupted sleep, shakes and sweats Objective: 11/10/17 09:51 Vital Signs 11/10/17 11/10/17 03:30 06:17 Temperature 97 F L Pulse Rate 71 Respiratory 18 18 Rate Blood Pressure 138/99 Laboratory Last Values POC Glucometer 96 UNITS (80-120) 11/10/17 05:42 Labs pending Assessment: 11/10/17 09:52 Withdrawal sx Plan: Continue detox
[2017-11-10] MEDS: PRENATAL VITAMINS W/ FOLIC ACID TABLET (FP) PO SCH (10:13)
[2017-11-10] MEDS: FOLIC ACID 1 MG TABLET (FP) PO SCH (10:13)
[2017-11-10] MEDS: LABETALOL HCL 100 MG TABLET (FP) PO SCH ×2 (10:13→22:44)
[2017-11-10] MEDS: NICOTINE 21 MG/24 HOURS TOPICAL PATCH TD SCH (10:13)
[2017-11-10] MEDS: ASPIRIN COATED 81 MG TABLET.EC PO SCH (10:13)
[2017-11-10 10:32] LABS: HEMATOCRIT 33.6 % (32.4-45.2); HEMOGLOBIN 10.9 GM/dL (10.7-15.3); MCH 27.1 pg (25.7-33.7); MCHC 32.4 g/dl (32.0-36.0); MEAN CELL VOLUME 83.5 fl (80-96); MEAN PLT VOLUME 10.2 fl (7.5-11.1); PLATELET COUNT 215 K/MM3 (134-434); RBC 4.03 M/mm3 (3.60-5.2); WHITE BLOOD COUNT 4.6 K/mm3 (4.0-10.0)
[2017-11-10 10:35] LABS: URINE APPEARANCE CLOUDY; URINE BILIRUBIN NEGATIVE (<2.0 mg/dL); URINE COLOR YELLOW; URINE GLUCOSE (UA) NEGATIVE (NEGATIVE); URINE KETONE NEGATIVE (NEGATIVE); URINE NITRITE NEGATIVE (NEGATIVE); URINE UROBILINOGEN NEGATIVE mg/dL (0.2-1.0)
[2017-11-10 10:46] LABS: URINE LEUK ESTERASE 3+ (NEGATIVE); URINE PROTEIN 3+ (NEGATIVE)
[2017-11-10 10:47] LABS: ALBUMIN 2.4 g/dl (3.4-5.0); ANION GAP 6 (8-16); BLOOD UREA NITROGEN 22 mg/dL (7-18); CALCIUM 8.6 mg/dL (8.5-10.1); CHLORIDE 113 mmol/L (98-107); CO2 25 mmol/L (21-32); GLUCOSE,RANDOM 95 mg/dL (74-106); POTASSIUM 4.4 mmol/L (3.5-5.1); SODIUM 144 mmol/L (136-145)
[2017-11-10 10:51] LABS: EPI CELLS MODERATE /HPF (FEW); URINE BACTERIA MODERATE /hpf (NONE SEEN)
[2017-11-10 10:53] LABS: ALK PHOS 74 U/L (45-117); BILIRUBIN,TOTAL 0.2 mg/dL (0.2-1.0); CREATININE 2.3 mg/dL (0.55-1.02); SGOT/AST 25 U/L (15-37); SGPT/ALT 24 U/L (12-78); TOT PROT 6.9 g/dl (6.4-8.2)
[2017-11-10] MEDS: ATORVASTATIN CA 40 MG TABLET (FP) PO SCH (22:44)
[2017-11-10] MEDS: THIAMINE HCL 100 MG TABLET (FP) PO SCH (22:44)
[2017-11-11] MEDS: chlordiazePOXIDE HCL 25 MG CAPSULE PO SCH ×3 (06:23→17:52)
[2017-11-11] MEDS ORDERED: cloNIDine HCL 0.1 MG TABLET PO ONE (07:28)
--- NOTE | 2017-11-11 07:31 | PN ---
BHS Progress Note Note: Patient's blood pressure is B/P 155/116. Patient is asymptomatic Vital Signs Temperature 97.7 F 11/11/17 06:50 Pulse Rate 79 11/11/17 06:50 Respiratory Rate 20 11/11/17 06:50 Blood Pressure 155/116 11/11/17 06:50 O2 Sat by Pulse Oximetry (%) Action: Clonidine 0.1mg tablet oral ordered
[2017-11-11] MEDS: metFORMIN HCL 500 MG TABLET (FP) PO SCH ×2 (07:34→17:51)
[2017-11-11] MEDS: PRENATAL VITAMINS W/ FOLIC ACID TABLET (FP) PO SCH (10:15)
[2017-11-11] MEDS: NICOTINE 21 MG/24 HOURS TOPICAL PATCH TD SCH (10:16)
[2017-11-11] MEDS: ASPIRIN COATED 81 MG TABLET.EC PO SCH (10:16)
[2017-11-11] MEDS: LABETALOL HCL 100 MG TABLET (FP) PO SCH (10:16)
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
[2017-11-11] MEDS: FOLIC ACID 1 MG TABLET (FP) PO SCH (11:42)
[2017-11-11] MEDS: PHENYTOIN NA EXTENDED 100 MG CAPSULE (FP) PO SCH (11:42)
[2017-11-11] MEDS ORDERED: amLODIPine BESYLATE 10 MG TABLET (FP) PO ONE (15:11)
[2017-11-11] MEDS ORDERED: amLODIPine BESYLATE 10 MG TABLET (FP) PO SCH (15:15)
[2017-11-11] MEDS: CITALOPRAM HYDROBROMIDE 10 MG TABLET (FP) PO SCH (15:21)
--- NOTE | 2017-11-11 16:46 | PN ---
[facility] Progress Note (SOAP) Subjective: sweat tremor gi distress trouble sleep at night received room mate reported that the patient fell when got out the bed patient reported fell on her buttocks denies pain Objective: 11/11/17 16:43 Vital Signs Temperature 97.1 F L 11/11/17 14:35 Pulse Rate 79 11/11/17 14:35 Respiratory Rate 20 11/11/17 14:35 Blood Pressure 157/118 11/11/17 14:35 O2 Sat by Pulse Oximetry (%) Laboratory Last Values WBC 4.6 K/mm3 (4.0-10.0) 11/10/17 08:00 RBC 4.03 M/mm3 (3.60-5.2) 11/10/17 08:00 Hgb 10.9 GM/dL (10.7-15.3) 11/10/17 08:00 Hct 33.6 % (32.4-45.2) 11/10/17 08:00 MCV 83.5 fl (80-96) 11/10/17 08:00 MCH 27.1 pg (25.7-33.7) 11/10/17 08:00 MCHC 32.4 g/dl (32.0-36.0) 11/10/17 08:00 RDW 16.0 % (11.6-15.6) H 11/10/17 08:00 Plt Count 215 K/MM3 (134-434) D 11/10/17 08:00 MPV 10.2 fl (7.5-11.1) 11/10/17 08:00 Sodium 144 mmol/L (136-145) 11/10/17 08:00 Potassium 4.4 mmol/L (3.5-5.1) 11/10/17 08:00 Chloride 113 mmol/L (98-107) H 11/10/17 08:00 Carbon Dioxide 25 mmol/L (21-32) 11/10/17 08:00 Anion Gap 6 (8-16) L 11/10/17 08:00 BUN 22 mg/dL (7-18) H 11/10/17 08:00 Creatinine 2.3 mg/dL (0.55-1.02) H 11/10/17 08:00 Creat Clearance w eGFR 22.44 (>60) 11/10/17 08:00 POC Glucometer 98 UNITS (80-120) 11/11/17 07:28 Random Glucose 95 mg/dL (74-106) 11/10/17 08:00 Calcium 8.6 mg/dL (8.5-10.1) 11/10/17 08:00 Total Bilirubin 0.2 mg/dL (0.2-1.0) 11/10/17 08:00 AST 25 U/L (15-37) 11/10/17 08:00 ALT 24 U/L (12-78) 11/10/17 08:00 Alkaline Phosphatase 74 U/L (45-117) 11/10/17 08:00 Total Protein 6.9 g/dl (6.4-8.2) 11/10/17 08:00 Albumin 2.4 g/dl (3.4-5.0) L 11/10/17 08:00 Urine Color Yellow 11/10/17 08:52 Urine Appearance Cloudy 11/10/17 08:52 Urine pH 6.0 (5.0-8.0) 11/10/17 08:52 Ur Specific [place] 1.007 (1.001-1.035) 11/10/17 08:52 Urine Protein 3+ (NEGATIVE) H 11/10/17 08:52 Urine Glucose (UA) Negative (NEGATIVE) 11/10/17 08:52 Urine Ketones Negative (NEGATIVE) 11/10/17 08:52 Urine Blood 1+ (NEGATIVE) H 11/10/17 08:52 Urine Nitrite Negative (NEGATIVE) 11/10/17 08:52 Urine Bilirubin Negative (<2.0 mg/dL) 11/10/17 08:52 Urine Urobilinogen Negative mg/dL (0.2-1.0) 11/10/17 08:52 Ur Leukocyte Esterase 3+ (NEGATIVE) H 11/10/17 08:52 Urine WBC (Auto) 49 /hpf (3-5) 11/10/17 08:52 Urine RBC (Auto) 48 /hpf (0-3) 11/10/17 08:52 Ur Epithelial Cells Moderate /HPF (FEW) 11/10/17 08:52 Urine Bacteria Moderate /hpf (NONE SEEN) 11/10/17 08:52 RPR Titer Nonreactive (NONREACTIVE) 11/10/17 08:00 lab noted uti renal insufficiency 11/11/17 16:53 buttocks skin intact no swelling no redness none tender on palpation Assessment: 11/11/17 16:51 alcohol withdrawal sx hypertension renal insufficiency 11/11/17 16:53 fall 11/11/17 16:55 uti 11/11/17 16:56 seizure Plan: continue detox fall precaution #1 ER evaluation as per protocol change labetalol to 200 mg po bid adds amlodipine begin levaquen 500 mg po one dose today and 250 mg po daily x 3 days dilantine serum level bbegin dilantin 200 mg po bid
[2017-11-11] MEDS: HYDROCORTISONE 0.5% TOPICAL OINTMENT TUBE TP SCH (18:55)
[2017-11-11] MEDS ORDERED: LISINOPRIL 10 MG TABLET (FP) PO SCH (22:00)
[2017-11-12] MEDS: chlordiazePOXIDE 5 MG CAPSULE PO SCH ×4 (06:25→17:50)
[2017-11-12] MEDS: metFORMIN HCL 500 MG TABLET (FP) PO SCH (07:27)
[2017-11-12] MEDS: ATORVASTATIN CA 40 MG TABLET (FP) PO SCH ×2 (08:34→22:41)
[2017-11-12] MEDS: THIAMINE HCL 100 MG TABLET (FP) PO SCH ×2 (08:34→22:41)
[2017-11-12] MEDS: LABETALOL HCL 200 MG TABLET (FP) PO SCH ×3 (08:34→22:43)
[2017-11-12] MEDS: PHENYTOIN NA EXTENDED 100 MG CAPSULE (FP) PO SCH ×3 (08:34→22:41)
[2017-11-12] MEDS: HYDROCORTISONE 0.5% TOPICAL OINTMENT TUBE TP SCH ×5 (08:34→22:39)
[2017-11-12] MEDS: OLANZapine 10 MG TABLET PO SCH ×2 (08:35→22:41)
[2017-11-12] MEDS: PRENATAL VITAMINS W/ FOLIC ACID TABLET (FP) PO SCH (10:49)
[2017-11-12] MEDS: FOLIC ACID 1 MG TABLET (FP) PO SCH (10:50)
[2017-11-12] MEDS: ASPIRIN COATED 81 MG TABLET.EC PO SCH (10:50)
[2017-11-12] MEDS: CITALOPRAM HYDROBROMIDE 10 MG TABLET (FP) PO SCH (10:50)
[2017-11-12] MEDS: NICOTINE 21 MG/24 HOURS TOPICAL PATCH TD SCH (10:51)
[2017-11-12] MEDS: amLODIPine BESYLATE 10 MG TABLET (FP) PO SCH (10:51)
--- NOTE | 2017-11-12 12:23 | PN ---
S Progress Note (SOAP) Subjective: ALERT,INTERRUPTED SLEEP, Objective: 11/12/17 12:20 Vital Signs Temperature 97.2 F L 11/12/17 11:09 Pulse Rate 105 H 11/12/17 11:09 Respiratory Rate 18 11/12/17 11:09 Blood Pressure 122/110 11/12/17 11:09 O2 Sat by Pulse Oximetry (%) HAS MISSED THE CHAIR WHILE TRYING TO SIT DOWN,WITNESS,NO HEAD INJURY 11/12/17 12:21 NO INJURY NOTED Assessment: 11/12/17 12:21 WITHDRAWAL SYMPTOM Plan: CONTINUE DETOX,INITIATE FALL PROTOCOL 2,CLOSE MONITORING,TO MOVE PATIENT TO ROOM NEAR NURSING STATION
[2017-11-12] MEDS ORDERED: PHENYTOIN NA EXTENDED 100 MG CAPSULE (FP) PO ONE (13:45)
--- NOTE | 2017-11-12 13:46 | PN ---
[facility] Progress Note Note: D/C METFORMIN DUE TO RENAL INSUFFICIENCY,WILL DO BGM MONITORING WITH INSULIN COVERAGE
[2017-11-12] MEDS: INSULIN (NOVOLOG) ASPART 100 UNITS/ML 10ML VIAL SQ SCH (16:45)
--- NOTE | 2017-11-12 22:14 | EKG ---
Test Reason : Blood Pressure : / mmHG Vent. Rate : 057 BPM Atrial Rate : 057 BPM P-R Int : 152 ms QRS Dur : 096 ms QT Int : 456 ms P-R-T Axes : 012 061 070 degrees QTc Int : 443 ms SINUS BRADYCARDIA WITH PREMATURE ATRIAL COMPLEXES OTHERWISE NORMAL ECG WHEN COMPARED WITH ECG OF 14-SEP-2017 22:55, NO SIGNIFICANT CHANGE WAS FOUND Confirmed by MARLON EATON MD ([id number]) on 11/12/2017 10:14:08 PM Referred By: Confirmed By:MARLON EATON MD
[2017-11-12] MEDS: chlordiazePOXIDE HCL 10 MG CAPSULE PO SCH (22:41)
[2017-11-13] MEDS: chlordiazePOXIDE HCL 10 MG CAPSULE PO SCH ×3 (05:52→17:27)
[2017-11-13] MEDS: INSULIN (NOVOLOG) ASPART 100 UNITS/ML 10ML VIAL SQ SCH ×2 (06:11→17:28)
--- NOTE | 2017-11-13 09:21 | PN ---
S Progress Note (SOAP) Subjective: ALERT,INTERRUPTED SLEEP,FEEL WEAK Objective: 11/13/17 09:18 Vital Signs Temperature 98.1 F 11/13/17 08:44 Pulse Rate 106 H 11/13/17 08:44 Respiratory Rate 18 11/13/17 08:44 Blood Pressure 143/116 11/13/17 08:44 O2 Sat by Pulse Oximetry (%) Assessment: 11/13/17 09:18 FEEL WEAK Plan: CONTINUE DETOX,CLOSE MONITORING,DILANTIN LEVEL AND CMP PENDING
[2017-11-13 10:06] LABS: ALBUMIN 2.7 g/dl (3.4-5.0); ANION GAP 6 (8-16); BLOOD UREA NITROGEN 33 mg/dL (7-18); CALCIUM 9.1 mg/dL (8.5-10.1); CHLORIDE 115 mmol/L (98-107); CO2 26 mmol/L (21-32); CREATININE 2.9 mg/dL (0.55-1.02); GLUCOSE,RANDOM 85 mg/dL (74-106); POTASSIUM 5.4 mmol/L (3.5-5.1); SGOT/AST 23 U/L (15-37); SGPT/ALT 26 U/L (12-78); SODIUM 147 mmol/L (136-145)
[2017-11-13 10:08] LABS: ALK PHOS 94 U/L (45-117); BILIRUBIN,TOTAL 0.2 mg/dL (0.2-1.0); TOT PROT 7.8 g/dl (6.4-8.2)
--- NOTE | 2017-11-13 10:14 | PN ---
S Progress Note Note: PATIENT WAS PLACED ON ONE ON ONE FOR PATIENT'S SAFETY,FREQUENT FALL,CLOSE MONITORING,
[2017-11-13] MEDS: ASPIRIN COATED 81 MG TABLET.EC PO SCH (10:36)
[2017-11-13] MEDS: HYDROCORTISONE 0.5% TOPICAL OINTMENT TUBE TP SCH ×3 (10:36→18:46)
[2017-11-13] MEDS: CITALOPRAM HYDROBROMIDE 10 MG TABLET (FP) PO SCH (10:36)
[2017-11-13] MEDS: PHENYTOIN NA EXTENDED 100 MG CAPSULE (FP) PO SCH (10:36)
[2017-11-13] MEDS: LABETALOL HCL 200 MG TABLET (FP) PO SCH (10:36)
[2017-11-13] MEDS: PRENATAL VITAMINS W/ FOLIC ACID TABLET (FP) PO SCH (10:36)
[2017-11-13] MEDS: amLODIPine BESYLATE 10 MG TABLET (FP) PO SCH (10:36)
[2017-11-13] MEDS: NICOTINE 21 MG/24 HOURS TOPICAL PATCH TD SCH (11:07)
--- NOTE | 2017-11-13 12:57 | PN ---
[facility] Progress Note Note: Laboratory Results - last 24 hr 11/12/17 11/13/17 11/13/17 16:27 05:58 07:00 Sodium Potassium Chloride Carbon Dioxide Anion Gap BUN Creatinine Creat Clearance w eGFR POC Glucometer 151 93 Random Glucose Calcium Total Bilirubin AST ALT Alkaline Phosphatase Total Protein Albumin Phenytoin 9.0 L D 11/13/17 07:00 Sodium 147 H Potassium 5.4 H Chloride 115 H Carbon Dioxide 26 Anion Gap 6 L BUN 33 H Creatinine 2.9 H Creat Clearance w eGFR 17.18 POC Glucometer Random Glucose 85 Calcium 9.1 Total Bilirubin 0.2 AST 23 ALT 26 Alkaline Phosphatase 94 D Total Protein 7.8 Albumin 2.7 L Phenytoin DEHYDRATED FREQU[place] FALLS RENAL INSUFFICIENCY,HTN,HIV,TYPE 2 DM DILANTIN LEVEL IS 9.0 PATIENT TO BE TRANSFERRED TO [facility] ER FOR EVALUATION AND TREATMENT,ENDORSED TO DR THURSTON TO BE TRANSPORTED BY [facility] BP 140/113,P114,RR 20,T98
[2017-11-13 21:40] VITALS: BP 118/84; PULSE 87; TEMP 98.3
== END 2017-11-14 00:02 | disposition short-term general hospital (02) | DRG 774 ==
LOC: YASAS 12:42 → Y6N 17:23
PROVIDERS: ADMIT Family Medicine Addiction Medicine; ATTEND Family Medicine Addiction Medicine
PROC: HZ2ZZZZ Detoxification Services for Substance Abuse Treatment (ICD-10-PCS; principal; 2017-11-09)
DX: F10.230 Alcohol dependence with withdrawal, uncomplicated (principal); F14.20 Cocaine dependence, uncomplicated; F17.213 Nicotine dependence, cigarettes, with withdrawal; F19.24 Other psychoactive substance dependence with psychoactive substance-induced mood disorder; F19.282 Other psychoactive substance dependence with psychoactive substance-induced sleep disorder; F20.0 Paranoid schizophrenia; Z21 Asymptomatic human immunodeficiency virus [HIV] infection status; E78.00 Pure hypercholesterolemia, unspecified; E11.9 Type 2 diabetes mellitus without complications; N18.9 Chronic kidney disease, unspecified; Z91.81 History of falling; I69.898 Other sequelae of other cerebrovascular disease; H54.62 Unqualified visual loss, left eye, normal vision right eye; Z86.69 Personal history of other diseases of the nervous system and sense organs; I10 Essential (primary) hypertension
CPT/HCPCS: 36415; 80053; 80185; 81003; 81015; 82962; 85027; 86593; 93005; 93010; J0735

== ENCOUNTER 2017-11-11 15:45 | Emergency (ER) | payer OTHER ==
[2017-11-11 15:59] VITALS: BP 151/113; PULSE 78; TEMP 98.2; BMI 24.4
--- NOTE | 2017-11-11 16:29 | PDOC ---
History of Present Illness - General Chief Complaint: Injury Stated Complaint: FELL Time Seen by Provider: 11/11/17 16:08 History Source: Patient Exam Limitations: No Limitations - History of Present Illness Initial Comments: 11/11/17 16:29 This is a 52 YOF with h/o EtOH dependence, withdrawal seizures, cocaine use, HIV , DM, HTN, HLD, asthma, and paranoid schizophrenia, who was BIBA from [facility] (where she is admitted) after having fallen out of her bed. The patient states that she hit her lower back and also the back of her head. She notes minimal pain to both areas, but states she has been "staggering around" when asked if she is able to walk. She denies any new lightheadedness, dizziness, neck pain, chest pain, SOB, abdominal pain, numbness, tingling, focal weakness, or other symptoms. She notes the last time she drank any alcohol or used any drugs was a week ago. Past History - Past Medical History Allergies/Adverse Reactions: Allergies Allergy/AdvReac Type Severity Reaction Status Date / Time diphenhydramine HCl Allergy Swelling Verified 11/11/17 15:55 [From Benadryl] peanut Allergy Swelling Verified 11/11/17 15:55 peanuts Allergy Swelling Uncoded 11/11/17 15:55 Home Medications: Ambulatory Orders Albuterol Sulfate Inhaler - [Ventolin HFA Inhaler -] 2 inh PO Q4H PRN #1 inhaler 09/06/17 Phenytoin Na Extended [Dilantin -] 200 mg PO BID #60 capsule 09/06/17 metFORMIN HCL [Glucophage -] 500 mg PO BID #60 tablet 09/06/17 Aspirin Coated [Ecotrin -] 81 mg PO DAILY #30 tablet.ec 09/17/17 Atorvastatin Ca [Lipitor] 40 mg PO HS #30 tablet 09/17/17 Folic Acid - 1 mg PO DAILY #30 tablet 09/17/17 Multivitamins [Multivit ([facility] Formulary)] 1 tab PO DAILY #30 tab 09/17/17 Thiamine HCl [Vitamin B1 -] 100 mg PO DAILY #30 tablet 09/17/17 Citalopram Hydrobromide [Celexa -] 10 mg PO DAILY #30 tablet 11/11/17 Labetalol HCl 200 mg PO BID 06/24/18 Olanzapine [ZyPREXA -] 10 mg PO HS #30 tablet 11/11/17 Anemia: No Asthma: Yes Cancer: No Cardiac Disorders: No CVA: Yes (left vision loss ) COPD: No CHF: No DVT: No Dementia: No Diabetes: Yes (Not taking meds) GI Disorders: No Disorders: No HTN: Yes Hypercholesterolemia: Yes Kidney Stones: No Liver Disease: No Seizures: Yes (Does not recall most recent seizure but states it was "a long bismark ago". ) Thyroid Disease: No - Surgical History Abdominal Surgery: No Appendectomy: No Cardiac Surgery: No Cholecystectomy: No Lung Surgery: No Neurologic Surgery: No Orthopedic Surgery: No - Reproductive History PID: No - Immunization History Immunization Up to Date: Yes - Suicide/Smoking/Psychosocial Hx Smoking History: Unknown if ever smoked Have you smoked in the past 12 months: Yes Number of Cigarettes Smoked Daily: 30 Cigars Per Day: 0 Information on smoking cessation initiated: No 'Breaking Loose' booklet given: 11/09/17 Hx Alcohol Use: Yes Drug/Substance Use Hx: Yes Substance Use Type: Alcohol, Cocaine Hx Substance Use Treatment: Yes (Detox: 08/2017) Trauma Specific PMHX - Complaint Specific PMHX Arthritis: No Review of Systems - Review of Systems Able to Perform ROS?: Yes Constitutional: No: Chills, Fever, Unexplained wgt Loss HEENTM: No: Nose Congestion, Throat Pain Respiratory: No: Cough, Shortness of Breath Cardiac (ROS): No: Chest Pain, Palpitations ABD/GI: No: Constipated, Diarrhea, Nausea, Vomiting : No: Burning, Dysuria Musculoskeletal: Yes: Back Pain. No: Neck Pain Integumentary: No: Bruising, Rash Neurological: Yes: Headache. No: Numbness, Tingling, Weakness, Dizziness Endocrine: No: Unexplained Weight Gain, Unexplained Weight Loss *Physical Exam - Vital Signs Last Vital Signs Temp Pulse Resp BP Pulse Ox 98.2 F 78 18 151/113 97 11/11/17 15:55 11/11/17 15:55 11/11/17 15:55 11/11/17 15:55 11/11/17 15:55 - Physical Exam General Appearance: Yes: Nourished, Other (nontoxic appearing adult female, odor of urine is present, answers questions appropriately). No: Apparent Distress HEENT: positive: EOMI, Normal Voice, Hearing Grossly Normal. negative: Scleral Icterus (R), Scleral Icterus (L), Nasal Congestion Neck: positive: Trachea midline, Supple. negative: Tender, Rigid Respiratory/Chest: positive: Lungs Clear, Normal Breath Sounds. negative: Respiratory Distress, Crackles, Rhonchi, Stridor, Wheezing Cardiovascular: positive: Regular Rhythm, Regular Rate, S1, S2. negative: Edema , JVD, Murmur Gastrointestinal/Abdominal: positive: Normal Bowel Sounds, Soft. negative: Tender, Organomegaly, Pulsatile Mass, Guarding Musculoskeletal: positive: Normal Inspection. negative: Decreased Range of Motion, Vertebral Tenderness Extremity: positive: Normal Capillary Refill, Normal Inspection, Normal Range of Motion. negative: Tender, Cyanosis Integumentary: positive: Normal Color, Dry, Warm. negative: Erythema, Rash, Bruising Neurologic: positive: divorce attorney II-XII NML intact, Fully Oriented, Alert, Normal Mood/ Affect, Normal Response, Motor Strength 5/5. negative: EOM Palsy, Facial Droop , Numbness, Sensory Deficit, Confused, Disoriented ED Treatment Course - RADIOLOGY Radiology Studies Ordered: Category Date Time Status HEAD CT WITHOUT CONTRAST [CT] Stat CT Scan 11/11/17 16:[address] W/O CONTRAST [CT] Stat CT Scan 11/11/17 16:28 Ordered Medical Decision Making - Medical Decision Making Adult female patient presents from [facility] with head injury and low back injury 2/2 falling from bed. Initial Vital Signs Temp Pulse Resp BP Pulse Ox 98.2 F 78 18 151/113 97 11/11/17 15:55 11/11/17 15:55 11/11/17 15:55 11/11/17 15:55 11/11/17 15:55 Exam: nontoxic appearing, odor of urine present, answering appropriately, GCS 15 , protecting airway, equal bilateral breath sounds, no flail chest, abdomen soft , pelvis stable, no thigh hematoma, no midline vertebral ttp C/T/L spine, no back hematoma, PERRLA, moving all extremities, no scalp contusion, no cephalohematoma, no scalp laceration, no raccoon eyes, no shea sign, no hemotympanum, no CSF rhinorrhea/otorrhea. DDX IBNLT: Concussion, ICH, skull/facial bone fracture, etc. W/U ordered: Head CT, C-spine CT TX ordered: None Head CT: NADP; chronic right basal ganglia encephalomalasia. L-spine CT: No fracture; possible small left L4-5 disc herniation Reassessment: Patient states symptoms improved, repeat exam is benign. The Pt has gotten significant relief of symptoms with ED medications. Workup is not concerning for emergency-level pathology at this time. The Pt is appropriate for discharge back to [facility] with close outpatient follow up. They are comfortable with this plan and will follow up with their PCP in 1-3 days. Specific return precautions are discussed and they will come back to the ER if necessary. *DC/Admit/Observation/Transfer Diagnosis at time of Disposition: Lumbar disc herniation Fall from bed Qualifiers: Encounter type: initial encounter Qualified Code(s): W06.XXXA - Fall from bed, initial encounter Closed head injury Qualifiers: Encounter type: initial encounter Qualified Code(s): S09.90XA - Unspecified injury of head, initial encounter - Discharge Dispostion Disposition: [facility]-WAY FACILITY Condition at time of disposition: Stable Decision to Admit order: No - Referrals - Patient Instructions Printed Discharge Instructions: DI for Closed Head Injury Additional Instructions: You were seen in the ER for a head injury and back injury from a fall from bed. We took CT scans which showed no new problems in the head, and showed a lumbar spine disc herniation but no fractures in the back or other problems. After our assessment, we do not believe you are having a medical emergency any longer at this time, and we believe you are safe to go back to [facility]. Take Motrin and Tylenol as needed for pain. Follow up with your PCP in the next 1-3 days. Please come back to the ER at any time, 24 hours a day, for any new or worsening symptoms, especially severe pain, vision troubles, difficulty walking/ balancing, passing out, or other symptoms. If you are having symptoms that make it unsafe to drive, please call 911. - Post Discharge Activity
--- NOTE | 2017-11-11 17:09 | PDOC ---
Attending Attestation - Resident Resident Name: Lorrie Ralph - ED Attending Attestation I have performed the following: I have examined & evaluated the patient, The case was reviewed & discussed with the resident, I agree w/resident's findings & plan, Exceptions are as noted - HPI HPI: 11/11/17 17:20 "Patient is a 52 year old female with history of hypertension, HIV, polysubstance abuse (crack cocaine, IVDA), who was recently admitted to [facility] (detox) and presents to the ED after falling. Patient states that she fell out of her bed and hit the back of her head. Denies LOC. States that she accidentally rolled out of the bed. She is now complaining of lower back pain and endorses a mild headache. Patient states that she has only been at [facility] for 1 day. She says that the last time she drank EtOH was 1 week ago. She denies any neck pain, blurry or other visual changes. No further complaints at this time. " - Physicial Exam PE: 11/11/17 17:25 "GENERAL: Awake, alert, and fully oriented, in no acute distress. HEAD: No signs of trauma EYES: PERRLA, EOMI, sclera anicteric, conjunctiva clear ENT: Auricles normal inspection, hearing grossly normal, nares patent, oropharynx clear without exudates. Moist mucosa NECK: Nontender, no stepoffs, Normal ROM, supple, no lymphadenopathy, JVD, or masses LUNGS: Breath sounds equal, clear to auscultation bilaterally. No wheezes, and no crackles HEART: Regular rate and rhythm, normal S1 and S2, no murmurs, rubs or gallops ABDOMEN: Soft, nontender, normoactive bowel sounds. No guarding, no rebound. No masses EXTREMITIES: Normal range of motion, no edema. No clubbing or cyanosis. No cords, erythema, or tenderness BACK: no midline tenderness, no stepoffs NEUROLOGICAL: Cranial nerves II through XII intact. 5/5 strength and sensation in all extremities, Normal speech, normal gait, normal cerebellar function SKIN: Warm, Dry, normal turgor, no rashes or lesions noted. " - Medical Decision Making 11/11/17 17:25 52 F with mechanical fall out of bed, now with lower back and head pain. Exam wnl, pt neurologically intact. - CT head - CT L spine CTs negative for acute fx/bleed Pt is well appearing, with normal vitals. Clinically stable for DC at this time. I discussed the physical exam findings, ancillary test results and final diagnoses with the patient. I answered all of the patient's questions. The patient was satisfied with the care received and felt comfortable with the discharge plan and treatment plan. The patient agrees to follow up with the primary care physician within 24-72 hours.
== END 2017-11-11 23:30 | disposition home or self-care (01) ==
LOC: JER 15:45
DX: M51.26 Other intervertebral disc displacement, lumbar region (principal); W06.XXXA Fall from bed, initial encounter; Y93.89 Activity, other specified; Y92.230 Patient room in hospital as the place of occurrence of the external cause; Y99.8 Other external cause status; E11.9 Type 2 diabetes mellitus without complications; Z79.84 Long term (current) use of oral hypoglycemic drugs; F20.0 Paranoid schizophrenia; F11.20 Opioid dependence, uncomplicated; F10.20 Alcohol dependence, uncomplicated; F14.20 Cocaine dependence, uncomplicated; Z21 Asymptomatic human immunodeficiency virus [HIV] infection status; I69.898 Other sequelae of other cerebrovascular disease; H54.62 Unqualified visual loss, left eye, normal vision right eye
CPT/HCPCS: 70450-TC; 72131-TC; 99282-25